=== PATIENT | male | born 1965 | race Caucasian/White ===

== ENCOUNTER 2024-05-26 19:23 | Inpatient (IN) | payer MEDICAID ==
[~2024-05-26] VITALS: Ht 170.2 cm; Wt 96.5 kg
[2024-05-26 19:33] VITALS: PULSE 92; RESP 4; O2SAT 99
[2024-05-26] MEDS ORDERED: iohexol 350MG/ML 100ml bottle IV ONE (19:33)
[2024-05-26] MEDS ORDERED: levetiracetam inj 2,000 MG in normal saline 100ml IV soln 100 ML IV ONE (19:35)
[2024-05-26] MEDS ORDERED: levetiracetam-NACL1000mg/100ml 100 ML IV ONE ×2 (19:40)
[2024-05-26 19:57] LABS: APTT 44 SECONDS (22-32); INR 1.1 INR; PROTHROMBIN TIME 11.7 SECONDS (9.0-12.0)
[2024-05-26 19:58] LABS: BASOPHILS % (AUTO) 0.2 % (0-1); EOSINOPHILS % (AUTO) 0.3 % (0-6); LYMPHOCYTES # (AUTO) 1.2 X10'3 (1.1-4.8); LYMPHOCYTES % (AUTO) 6.3 % (21-51); MEAN PLATELET VOLUME 10.7 FL (7.4-10.4); MONOCYTES # (AUTO) 2.7 X10'3 (0-0.9); MONOCYTES % (AUTO) 14.5 % (2-12); NEUTROPHILS # (AUTO) 14.4 X10'3 (1.8-7.7); NEUTROPHILS % (AUTO) 78.7 % (42-75); PLATELET COUNT 313 X10'3 (140-440); WHITE BLOOD COUNT 18.3 X10'3 (4.5-11.0)
[2024-05-26] MEDS: levetiracetam-NACL1000mg/100ml 100 ML IV ONE ×2 (20:00→20:07)
[2024-05-26 20:01] LABS: ALBUMIN 3.4 G/DL (3.4-5.0); ANION GAP 27 (8-16); BLOOD UREA NITROGEN 65 MG/DL (7-18); BUN/CREATININE RATIO 23.2 (10.0-20.0); CHLORIDE 90 MMOL/L (99-107); POTASSIUM 5.1 MMOL/L (3.5-5.1); SODIUM 124 MMOL/L (135-145); eCRCL 28 ML/MIN; eGFR 23 ML/MIN
[2024-05-26] MEDS: LORazepam 2 mg/ml vial IV ONE (20:04)
[2024-05-26 20:12] LABS: GLUCOSE 597 MG/DL (70-104); TOTAL CARBON DIOXIDE 7.2 MMOL/L (24-32)
[2024-05-26 20:15] LABS: TOTAL CELLS COUNTED 100
[2024-05-26 20:17] LABS: ANISOCYTOSIS 1+; LARGE PLATELETS FEW; PLATELET ESTIMATE NORMAL
[2024-05-26 20:23] LABS: HEMATOCRIT 43.8 % (42.0-52.0); MEAN CORPUSCULAR HEMOGLOBIN 29.3 PG (27.0-31.0); MEAN CORPUSCULAR HGB CONC 34.3 g/dL (33.0-36.5); MEAN CORPUSCULAR VOLUME 85.6 FL (78-98); RED BLOOD COUNT 5.12 X10'6 (4.70-6.10); RED CELL DISTRIBUTION WIDTH 15.9 % (11.5-14.5)
[2024-05-26] MEDS ORDERED: potassium Cl 20 mEq SR tablet PO PRN ×2 (20:30)
[2024-05-26] MEDS ORDERED: sodium bicarbonate (8.4%) inj. 50 MEQ in dextrose 5% water 500ml 250 ML IV PRN (20:30)
[2024-05-26] MEDS ORDERED: potassium Cl 40MEQ/1/2NS 520ml 520 ML IV PRN (20:30)
[2024-05-26] MEDS ORDERED: sodium bicarbonate (8.4%) inj. 100 MEQ in dextrose 5% water 500ml 500 ML IV PRN (20:30)
[2024-05-26] MEDS ORDERED: Neutra Phos packet PO PRN (20:30)
[2024-05-26] MEDS ORDERED: potassium CL 20mEq in D5-1/2NS 1,000 ML IV PRN (20:30)
[2024-05-26] MEDS ORDERED: sodium phosphate inj. 15 MMOL in dextrose 5%-water 250 ML IV PRN (20:30)
[2024-05-26] MEDS ORDERED: sodium phosphate inj. 30 MMOL in dextrose 5%-water 250 ML IV PRN (20:30)
[2024-05-26] MEDS ORDERED: dextrose 50%-water 50ml dispensing syringe IV PRN (20:30)
[2024-05-26] MEDS: naloxone 0.4 mg/ml inj IV ONE (20:38)
[2024-05-26] MEDS: normal saline 1000ml 1,000 ML IV SCH ×2 (21:00→21:25)
[2024-05-26 21:14] LABS: BILIRUBIN,URINE SMALL (Neg); CLARITY,URINE CLEAR (Clear); COLOR,URINE YELLOW (Yellow); GLUCOSE, URINE >=1000 mg/dl (Neg); KETONES,URINE 40 mg/dl (Neg); LEUKOCYTE ESTERASE ,URINE NEGATIVE (Neg); NITRITES, URINE NEGATIVE (Neg); OCCULT BLOOD,URINE LARGE (Neg); PH,URINE 5.5 (4.8-8.0); PROTEIN,URINE 30 mg/dl (Neg); UROBILINOGEN,URINE 0.2 E.U/dL (0.2-1.0)
[2024-05-26] MEDS: insulin regular, human 10 units/0.1 ml syringe IV PRN (21:17)
[2024-05-26 21:18] LABS: UA COLLECTION TYPE FOLEY CATH
[2024-05-26] MEDS: Insulin Reg/NS 100units/100mL 100 ML IV SCH (21:18)
[2024-05-26 21:21] LABS: BACTERIA,URINE 3+ /HPF (Neg); FINE GRANULAR CAST 0-3 /LPF (NEGATIVE); SQUAMOUS EPITHELIAL CELL,UR FEW /LPF (FEW); WBC,URINE 0-4 /HPF (0-4)
[2024-05-26] MEDS: normal saline 1000ml 1,000 ML IV ONE (21:25)
[2024-05-26] MEDS: sodium bicarbonate (8.4%) 1 mEq/ml syringe IV ONE (21:29)
[2024-05-26 21:33] LABS: URINE AMPHETAMINE SCREEN NEGATIVE (Neg); URINE BARBITUATE SCREEN NEGATIVE (Neg); URINE BENZODIAZEPINES SCREEN NEGATIVE (Neg); URINE CANNABINOID SCREEN NEGATIVE (Neg); URINE COCAINE SCREEN NEGATIVE (Neg); URINE METHADONE SCREEN NEGATIVE (Neg); URINE OPIATE SCREEN POSITIVE (Neg); URINE PHENCYCLIDINE SCREEN NEGATIVE (Neg)
[2024-05-26] MEDS: NORepinephrine 8mg/ 250ml NS 250 ML IV SCH (21:44)
[2024-05-26 21:46] LABS: ETHANOL < 10 MG/DL (<10)
[2024-05-26 21:48] LABS: PHOSPHORUS 12.3 MG/DL (2.3-4.5)
[2024-05-26] MEDS ORDERED: fentaNYL/PF 50MCG/1 ML 2ML syringe IV PRN (22:25)
[2024-05-26 22:48] LABS: ALANINE AMINOTRANSFERASE 40 U/L (12-78); ALBUMIN 2.6 G/DL (3.4-5.0); ALBUMIN/GLOBULIN RATIO 0.9 (1.1-1.5); ALKALINE PHOSPHATASE 130 IU/L (46-116); ANION GAP 21 (8-16); ASPARTATE AMINO TRANSFERASE 88 U/L (10-37); BILIRUBIN,TOTAL 0.6 MG/DL (0.1-1.0); BLOOD UREA NITROGEN 62 MG/DL (7-18); BUN/CREATININE RATIO 24.7 (10.0-20.0); CALCIUM 6.7 MG/DL (8.5-10.1); CHLORIDE 97 MMOL/L (99-107); CREATININE 2.51 MG/DL (0.60-1.10); POTASSIUM 4.9 MMOL/L (3.5-5.1); SODIUM 129 MMOL/L (135-145); TOTAL PROTEIN 5.4 G/DL (6.4-8.2); eCRCL 29 ML/MIN; eGFR 26 ML/MIN
[2024-05-26] MEDS: etomidate 2mg/ml inj. IV ONE (22:56)
[2024-05-26] MEDS: rocuronium 10mg/ml inj IV ONE (22:57)
[2024-05-26] MEDS: midazolam 100mg in NS 100ml 100 ML IV PRN (23:13)
[2024-05-26 23:39] LABS: TOTAL CARBON DIOXIDE 11.1 MMOL/L (24-32)
[2024-05-26 23:41] LABS: GLUCOSE 470 MG/DL (70-104)
[2024-05-26 23:49] VITALS: BP 116/69; PULSE 56; RESP 16
[2024-05-27] VITALS (65 sets, daily range): BP systolic 82–152; BP diastolic 37–72; PULSE 56–124; RESP 16–43; TEMP 93.2; O2SAT 96–100
[2024-05-27 00:42] LABS: ABG BASE EXCESS -27.2 mmol/L (-2.0-3.0); ABG HCO3 7.7 mmol/L (21.0-28.0); ABG OXYGEN SATURATION 95.8 % (94.0-98.0); ABG PCO2 (T) 41.8 mmHg (35.0-48.0); ABG PH (T) 6.855 (7.350-7.450); ABG PO2 (T) 87.4 mmHg (83.0-108.0); ALLEN'S TEST Yes; FCOHb 0.2 % (0.5-1.5); FHHb 4.2 % (0.0-5.0); FMetHb 0.1 % (0.0-1.5); FO2Hb 95.5 % (94.0-98.0); MODE VENT - PRVC; PATIENT TEMPERATURE 33.3; PEEP 5 cm H2O; RESPIRATORY RATE 16 b/min; TIDAL VOLUME 400 mL; TOTAL HEMOGLOBIN 16.8 G/dl (13.5-17.5)
[2024-05-27 00:58] LABS: ALBUMIN 3.3 G/DL (3.4-5.0); ANION GAP 22 (8-16); BLOOD UREA NITROGEN 62 MG/DL (7-18); BUN/CREATININE RATIO 24.6 (10.0-20.0); CALCIUM 7.2 MG/DL (8.5-10.1); CHLORIDE 97 MMOL/L (99-107); CREATININE 2.52 MG/DL (0.60-1.10); POTASSIUM 4.7 MMOL/L (3.5-5.1); SODIUM 130 MMOL/L (135-145); eCRCL 29 ML/MIN; eGFR 26 ML/MIN
[2024-05-27 00:59] LABS: PHOSPHORUS 9.8 MG/DL (2.3-4.5)
[2024-05-27 01:03] LABS: GLUCOSE 414 MG/DL (70-104); TOTAL CARBON DIOXIDE 11.4 MMOL/L (24-32)
[2024-05-27] MEDS: sodium bicarbonate (8.4%) 1 mEq/ml syringe IV ONE (01:12)
[2024-05-27] MEDS ORDERED: morphine 2 MG/ML inj. syringe IV PRN (01:20)
[2024-05-27] MEDS ORDERED: Insulin Reg/NS 100units/100mL 100 ML IV SCH (01:20)
[2024-05-27] MEDS ORDERED: insulin regular, human 10 units/0.1 ml syringe IV PRN (01:20)
[2024-05-27] MEDS ORDERED: dextrose 50%-water 50ml dispensing syringe IV PRN (01:20)
[2024-05-27] MEDS ORDERED: normal saline 1000ml 1,000 ML IV SCH (01:20)
[2024-05-27] MEDS ORDERED: sodium phosphate inj. 30 MMOL in dextrose 5%-water 250 ML IV PRN (01:20)
[2024-05-27] MEDS ORDERED: potassium Cl 40MEQ/1/2NS 520ml 520 ML IV PRN (01:20)
[2024-05-27] MEDS ORDERED: sodium bicarbonate (8.4%) inj. 50 MEQ in dextrose 5% water 500ml 250 ML IV PRN (01:20)
[2024-05-27] MEDS ORDERED: magnesium hydroxide 30ml (MOM) UD suspension PO PRN (01:20)
[2024-05-27] MEDS ORDERED: potassium Cl 20 mEq SR tablet PO PRN ×2 (01:20)
[2024-05-27] MEDS: LidoCAINE 2% Topical Jelly 11mL syringe (UROJET) TOP ONE (01:20)
[2024-05-27] MEDS ORDERED: Neutra Phos packet PO PRN (01:20)
[2024-05-27] MEDS ORDERED: acetaminophen 325mg tablet PO PRN ×2 (01:20)
[2024-05-27] MEDS ORDERED: ondansetron/PF 4mg/2ml inj IV PRN (01:20)
[2024-05-27 01:34] LABS: ALBUMIN 2.3 G/DL (3.4-5.0); ANION GAP 16 (8-16); BLOOD UREA NITROGEN 63 MG/DL (7-18); BUN/CREATININE RATIO 27.3 (10.0-20.0); CHLORIDE 105 MMOL/L (99-107); CREATININE 2.31 MG/DL (0.60-1.10); GLUCOSE 330 MG/DL (70-104); POTASSIUM 3.8 MMOL/L (3.5-5.1); SODIUM 145 MMOL/L (135-145); TOTAL CARBON DIOXIDE 24.4 MMOL/L (24-32); eCRCL 31 ML/MIN; eGFR 29 ML/MIN
[2024-05-27] MEDS: normal saline 1000ml 1,000 ML IV SCH (01:50)
[2024-05-27] MEDS: sodium bicarbonate (8.4%) inj. 100 MEQ in dextrose 5% water 500ml 500 ML IV PRN (02:15)
[2024-05-27 02:29] LABS: CALCIUM 5.7 MG/DL (8.5-10.1)
[2024-05-27] MEDS ORDERED: calcium gluconate inj. 2 GM in normal saline 100ml IV soln 100 ML IV STA (02:29)
[2024-05-27] MEDS: CALCIUM GLUC 1gm/50ml NACL,iso 50 ML IV ONE ×2 (02:43→04:27)
[2024-05-27 02:50] LABS: ABG BASE EXCESS -20.2 mmol/L (-2.0-3.0); ABG HCO3 10.2 mmol/L (21.0-28.0); ABG PCO2 (T) 35.7 mmHg (35.0-48.0); ABG PH (T) 7.058 (7.350-7.450); ABG PO2 (T) 71.4 mmHg (83.0-108.0); ALLEN'S TEST POSITIVE; FCOHb 0.4 % (0.5-1.5); FMetHb 0.1 % (0.0-1.5); FO2Hb 94.5 % (94.0-98.0); MODE VENT - PRVC; PATIENT TEMPERATURE 34.4; PEEP 5 cm H2O; RESPIRATORY RATE 18 b/min; TIDAL VOLUME 500 mL
[2024-05-27 05:00] LABS: ABG BASE EXCESS -15.7 mmol/L (-2.0-3.0); ABG HCO3 10.4 mmol/L (21.0-28.0); ABG OXYGEN SATURATION 93.2 % (94.0-98.0); ABG PCO2 (T) 25.3 mmHg (35.0-48.0); ABG PH (T) 7.226 (7.350-7.450); ABG PO2 (T) 60.4 mmHg (83.0-108.0); ALLEN'S TEST POSITIVE; FCOHb 1.3 % (0.5-1.5); FHHb 6.7 % (0.0-5.0); FMetHb 0.3 % (0.0-1.5); FO2Hb 91.7 % (94.0-98.0); MODE VENT - PRVC; PATIENT TEMPERATURE 35.9; PEEP 5 cm H2O; RESPIRATORY RATE 18 b/min; TIDAL VOLUME 500 mL; TOTAL HEMOGLOBIN 15.2 G/dl (13.5-17.5)
[2024-05-27] MEDS: potassium CL 20mEq in D5-1/2NS 1,000 ML IV PRN (05:54)
[2024-05-27 05:57] LABS: ALBUMIN 2.2 G/DL (3.4-5.0); ANION GAP 17 (8-16); BLOOD UREA NITROGEN 64 MG/DL (7-18); BUN/CREATININE RATIO 25.4 (10.0-20.0); CALCIUM 6.4 MG/DL (8.5-10.1); CHLORIDE 104 MMOL/L (99-107); CREATININE 2.52 MG/DL (0.60-1.10); GLUCOSE 249 MG/DL (70-104); PHOSPHORUS 4.3 MG/DL (2.3-4.5); SODIUM 136 MMOL/L (135-145); eCRCL 29 ML/MIN; eGFR 26 ML/MIN
[2024-05-27 06:04] LABS: POTASSIUM 2.8 MMOL/L (3.5-5.1)
[2024-05-27] MEDS ORDERED: POTASSIUM CHLORIDE 20 MEQ/15 ML oral solution PO PRN (07:21)
[2024-05-27] MEDS: POTASSIUM CHLORIDE 20 MEQ/15 ML oral solution OGT PRN ×2 (07:53→12:03)
[2024-05-27] MEDS: K and/or MAG REPLACEMENT MC SCH (08:00)
[2024-05-27] MEDS ORDERED: K and/or MAG REPLACEMENT MC SCH (08:00)
[2024-05-27 08:26] LABS: HEMOGLOBIN A1C 10.4 % (4.5-6.2)
[2024-05-27] MEDS ORDERED: rocuronium 10mg/ml inj IV ONE (09:00)
[2024-05-27 10:24] LABS: ALANINE AMINOTRANSFERASE 42 U/L (12-78); ALBUMIN 2.3 G/DL (3.4-5.0); ALKALINE PHOSPHATASE 103 IU/L (46-116); ANION GAP 15 (8-16); ASPARTATE AMINO TRANSFERASE 82 U/L (10-37); BILIRUBIN,TOTAL 0.5 MG/DL (0.1-1.0); BLOOD UREA NITROGEN 65 MG/DL (7-18); BUN/CREATININE RATIO 24.5 (10.0-20.0); CALCIUM 6.5 MG/DL (8.5-10.1); CHLORIDE 107 MMOL/L (99-107); CREATININE 2.65 MG/DL (0.60-1.10); GLUCOSE 162 MG/DL (70-104); MAGNESIUM 2.2 MG/DL (1.5-2.4); PHOSPHORUS 2.1 MG/DL (2.3-4.5); POTASSIUM 3.3 MMOL/L (3.5-5.1); SODIUM 138 MMOL/L (135-145); TOTAL CARBON DIOXIDE 15.7 MMOL/L (24-32); TOTAL PROTEIN 4.6 G/DL (6.4-8.2); eCRCL 27 ML/MIN; eGFR 25 ML/MIN
[2024-05-27] MEDS: PERFLUTREN PROTEIN-A MICROSPHR (Optison) 0.22 MG/ML 3ML VIAL IV ONE (11:35)
[2024-05-27] MEDS: acetaminophen 325mg tablet OGT PRN ×2 (12:03→20:54)
[2024-05-27] MEDS: FENTANYL-0.9 % NACL/PF 100 ML IV SCH (12:58)
[2024-05-27] MEDS: COMMUNICATION ORDER 1 EA MISC MC ONE ×4 (13:00→20:25)
[2024-05-27] MEDS: DEXTROSE 10 % AND 0.45 % NACL 1,000 ML IV SCH (13:05)
[2024-05-27] MEDS: sodium phosphate inj. 15 MMOL in dextrose 5%-water 250 ML IV PRN (13:12)
[2024-05-27] MEDS: pantoprazole 40 MG vial IV SCH (13:17)
[2024-05-27 13:18] LABS: PRO BRAIN NATRIURETIC PEPTIDE 15087 PG/ML (0-125)
[2024-05-27] MEDS: CefTRIAXone/D5W-Rocephin 1gm 50 ML IV SCH (13:37)
[2024-05-27 13:42] LABS: ACETONE NEGATIVE (NEGATIVE)
[2024-05-27] MEDS: AZITHROMYCIN 500 MG in NS 250ml IV.SOLN IV SCH (14:04)
[2024-05-27 14:18] LABS: BILIRUBIN,URINE MODERATE (Neg); CLARITY,URINE SLIGHTLY CLOUDY (Clear); COLOR,URINE YELLOW (Yellow); GLUCOSE, URINE 250 mg/dl (Neg); KETONES,URINE NEGATIVE (Neg); LEUKOCYTE ESTERASE ,URINE NEGATIVE (Neg); NITRITES, URINE NEGATIVE (Neg); OCCULT BLOOD,URINE LARGE (Neg); PROTEIN,URINE 30 mg/dl (Neg); UROBILINOGEN,URINE 0.2 E.U/dL (0.2-1.0)
[2024-05-27 14:21] LABS: UA COLLECTION TYPE FOLEY CATH
[2024-05-27 14:30] LABS: RBC,URINE 20-50 /HPF (0-2)
[2024-05-27 14:31] LABS: BACTERIA,URINE FEW /HPF (Neg); FINE GRANULAR CAST 0-3 /LPF (NEGATIVE); MUCUS STRANDS NONE SEEN /LPF (Neg); RENAL CELLS, URINE FEW /HPF; SQUAMOUS EPITHELIAL CELL,UR NONE SEEN /LPF (FEW)
[2024-05-27] MEDS ORDERED: LEVO50CA4 PO (14:45)
[2024-05-27] MEDS ORDERED: POTA8CAP20 PO (14:45)
[2024-05-27] MEDS ORDERED: XAL0.005OS EACHEYE (14:45)
[2024-05-27] MEDS ORDERED: FURO-150 PO (14:45)
[2024-05-27] MEDS ORDERED: EMPA25TA PO (14:45)
[2024-05-27] MEDS ORDERED: FLO0.4C PO (14:45)
[2024-05-27] MEDS ORDERED: CYCL-394 PO (14:45)
[2024-05-27] MEDS ORDERED: MORP30TA PO (14:45)
[2024-05-27] MEDS ORDERED: TIRZ7.5P SQ (14:45)
[2024-05-27] MEDS ORDERED: LOP12.5T PO (14:45)
[2024-05-27] MEDS ORDERED: ATOR40TA PO (14:45)
[2024-05-27] MEDS ORDERED: LYR25C PO (14:45)
[2024-05-27] MEDS ORDERED: INSU100I31 SQ (14:49)
[2024-05-27] MEDS: HEPARIN DRIP-CARDIAC**PHARMACIST-TO-DOSE IV ONE (15:50)
[2024-05-27 15:59] LABS: ACETONE NEGATIVE (NEGATIVE); ALBUMIN 1.9 G/DL (3.4-5.0); ANION GAP 16 (8-16); BLOOD UREA NITROGEN 65 MG/DL (7-18); BUN/CREATININE RATIO 21.7 (10.0-20.0); CALCIUM 6.1 MG/DL (8.5-10.1); CHLORIDE 108 MMOL/L (99-107); GLUCOSE 176 MG/DL (70-104); MAGNESIUM 1.9 MG/DL (1.5-2.4); SODIUM 139 MMOL/L (135-145); TOTAL CARBON DIOXIDE 15.1 MMOL/L (24-32); eCRCL 24 ML/MIN; eGFR 21 ML/MIN
[2024-05-27] MEDS ORDERED: heparin, porcine 5000 units/ml vial SQ SCH (16:00)
[2024-05-27 16:01] LABS: POTASSIUM 2.9 MMOL/L (3.5-5.1)
[2024-05-27] MEDS: aspirin 81mg tab.chew PO ONE (16:36)
[2024-05-27] MEDS: sodium chloride inj. 154 MEQ in Dextrose 10%-water IV solution 961.5 ML IV SCH (16:37)
[2024-05-27] MEDS: furosemide 10 MG/1 ML 10ml inj IV ONE (16:37)
[2024-05-27] MEDS: heparin 10,000 units/1 ML INJ IV ONE (16:40)
[2024-05-27 16:45] LABS: BASOPHILS % (AUTO) 0.1 % (0-1); EOSINOPHILS % (AUTO) 0.1 % (0-6); HEMATOCRIT 40.4 % (42.0-52.0); HEMOGLOBIN 13.7 g/dl (14.0-17.9); LYMPHOCYTES # (AUTO) 0.2 X10'3 (1.1-4.8); LYMPHOCYTES % (AUTO) 3.9 % (21-51); MEAN CORPUSCULAR HEMOGLOBIN 28.9 PG (27.0-31.0); MEAN CORPUSCULAR HGB CONC 33.8 g/dL (33.0-36.5); MEAN CORPUSCULAR VOLUME 85.4 FL (78-98); MEAN PLATELET VOLUME 9.5 FL (7.4-10.4); MONOCYTES % (AUTO) 21.1 % (2-12); NEUTROPHILS # (AUTO) 3.4 X10'3 (1.8-7.7); NEUTROPHILS % (AUTO) 74.8 % (42-75); PLATELET COUNT 118 X10'3 (140-440); RED BLOOD COUNT 4.73 X10'6 (4.70-6.10); RED CELL DISTRIBUTION WIDTH 16.3 % (11.5-14.5); WHITE BLOOD COUNT 4.6 X10'3 (4.5-11.0)
[2024-05-27 16:48] LABS: INR 1.2 INR; PROTHROMBIN TIME 12.5 SECONDS (9.0-12.0)
[2024-05-27] MEDS: MESSAGE TO NURSING IV ONE (16:48)
[2024-05-27 16:49] LABS: CHOL/HDL RATIO 3.4 (0.00-4.99); CHOLESTEROL 67 MG/DL (0-200); HDL CHOLESTEROL 20 MG/DL (35-60); LDL CHOLESTEROL 19 MG/DL (50-100); TRIGLYCERIDES 188 MG/DL (20-135)
[2024-05-27] MEDS: heparin 25,000 UNIT/250ml bag 250 ML IV PRN (17:00)
[2024-05-27] MEDS: heparin 10,000 units/1 ML INJ IV PRN (17:01)
[2024-05-27 17:22] LABS: TOTAL CELLS COUNTED 100
[2024-05-27 17:23] LABS: ANISOCYTOSIS 1+; PLATELET ESTIMATE DECREASED
[2024-05-27 17:26] LABS: TOXIC VACUOLATION FEW
[2024-05-27] MEDS: potassium Cl 40MEQ/270ML bag 270 ML IV PRN (20:34)
[2024-05-27] MEDS: Neutra Phos packet OGT PRN (22:43)
[2024-05-27] MEDS: magnesium sulf-water 2g/50mL 50 ML IV PRN (23:27)
[2024-05-28] VITALS (32 sets, daily range): BP systolic 119–150; BP diastolic 42–81; PULSE 98–124; RESP 16–32; O2SAT 96–99
[2024-05-28 00:03] LABS: ALBUMIN 1.7 G/DL (3.4-5.0); ANION GAP 15 (8-16); BLOOD UREA NITROGEN 63 MG/DL (7-18); BUN/CREATININE RATIO 19.9 (10.0-20.0); CHLORIDE 112 MMOL/L (99-107); CREATININE 3.17 MG/DL (0.60-1.10); GLUCOSE 140 MG/DL (70-104); POTASSIUM 4.5 MMOL/L (3.5-5.1); SODIUM 141 MMOL/L (135-145); eCRCL 23 ML/MIN; eGFR 20 ML/MIN
[2024-05-28 00:22] LABS: CALCIUM 5.8 MG/DL (8.5-10.1); TOTAL CARBON DIOXIDE 14.5 MMOL/L (24-32)
[2024-05-28] MEDS: magnesium sulf-water 4G/100mL 100 ML IV PRN (00:46)
[2024-05-28 01:02] LABS: APTT 63 SECONDS (22-32)
[2024-05-28] MEDS: MESSAGE TO NURSING IV ONE ×3 (02:49→15:48)
[2024-05-28 03:19] LABS: ABG BASE EXCESS -13.7 mmol/L (-2.0-3.0); ABG HCO3 10.8 mmol/L (21.0-28.0); ABG OXYGEN SATURATION 95.9 % (94.0-98.0); ABG PCO2 (T) 23.6 mmHg (35.0-48.0); ABG PH (T) 7.283 (7.350-7.450); ABG PO2 (T) 81.1 mmHg (83.0-108.0); ALLEN'S TEST POSITIVE; FCOHb 1.1 % (0.5-1.5); FMetHb 0.3 % (0.0-1.5); FO2Hb 94.6 % (94.0-98.0); MODE VENT - PRVC; PATIENT TEMPERATURE 37.6; PEEP 5 cm H2O; RESPIRATORY RATE 18 b/min; TIDAL VOLUME 500 mL
[2024-05-28 03:29] LABS: ALBUMIN 1.7 G/DL (3.4-5.0); ANION GAP 14 (8-16); BLOOD UREA NITROGEN 60 MG/DL (7-18); BUN/CREATININE RATIO 19.5 (10.0-20.0); CHLORIDE 114 MMOL/L (99-107); CREATININE 3.07 MG/DL (0.60-1.10); GLUCOSE 175 MG/DL (70-104); MAGNESIUM 3.4 MG/DL (1.5-2.4); PHOSPHORUS 1.6 MG/DL (2.3-4.5); POTASSIUM 4.1 MMOL/L (3.5-5.1); SODIUM 142 MMOL/L (135-145); eCRCL 24 ML/MIN; eGFR 21 ML/MIN
[2024-05-28 03:31] LABS: BASOPHILS % (AUTO) 0.1 % (0-1); EOSINOPHILS % (AUTO) 0.1 % (0-6); HEMATOCRIT 40.2 % (42.0-52.0); HEMOGLOBIN 13.8 g/dl (14.0-17.9); LYMPHOCYTES # (AUTO) 0.8 X10'3 (1.1-4.8); LYMPHOCYTES % (AUTO) 7.3 % (21-51); MEAN CORPUSCULAR HEMOGLOBIN 29.6 PG (27.0-31.0); MEAN CORPUSCULAR HGB CONC 34.3 g/dL (33.0-36.5); MEAN CORPUSCULAR VOLUME 86.2 FL (78-98); MONOCYTES # (AUTO) 1.7 X10'3 (0-0.9); MONOCYTES % (AUTO) 15.6 % (2-12); NEUTROPHILS # (AUTO) 8.4 X10'3 (1.8-7.7); NEUTROPHILS % (AUTO) 76.9 % (42-75); PLATELET COUNT 134 X10'3 (140-440); RED BLOOD COUNT 4.67 X10'6 (4.70-6.10); RED CELL DISTRIBUTION WIDTH 17.1 % (11.5-14.5); WHITE BLOOD COUNT 10.9 X10'3 (4.5-11.0)
[2024-05-28 04:21] LABS: CALCIUM 5.9 MG/DL (8.5-10.1); TOTAL CARBON DIOXIDE 13.9 MMOL/L (24-32)
[2024-05-28 09:23] LABS: APTT 49 SECONDS (22-32)
[2024-05-28 09:30] LABS: ALBUMIN 1.7 G/DL (3.4-5.0); ANION GAP 14 (8-16); BLOOD UREA NITROGEN 60 MG/DL (7-18); BUN/CREATININE RATIO 18.7 (10.0-20.0); CHLORIDE 113 MMOL/L (99-107); CREATININE 3.21 MG/DL (0.60-1.10); GLUCOSE 346 MG/DL (70-104); MAGNESIUM 2.8 MG/DL (1.5-2.4); PHOSPHORUS 2.7 MG/DL (2.3-4.5); POTASSIUM 3.8 MMOL/L (3.5-5.1); SODIUM 141 MMOL/L (135-145); eCRCL 23 ML/MIN; eGFR 20 ML/MIN
[2024-05-28 09:33] LABS: CALCIUM 5.8 MG/DL (8.5-10.1); TOTAL CARBON DIOXIDE 13.7 MMOL/L (24-32)
[2024-05-28 10:30] LABS: C DIFF ANTIGEN NEGATIVE (NEGATIVE); C DIFF SPECIMEN=DIARRHEA? ACCEPTABLE; C DIFFICILE TOXINS A&B NEGATIVE (Neg)
[2024-05-28] MEDS: COMMUNICATION ORDER 1 EA MISC MC ONE (10:30)
[2024-05-28] MEDS: aspirin 81mg tab.chew PO SCH (10:32)
[2024-05-28] MEDS: sodium bicarbonate 1meq/ml inj 150 ML in dextrose 5%-water 1,000 ML IV SCH (12:27)
[2024-05-28 14:34] LABS: APTT 44 SECONDS (22-32)
[2024-05-28 14:35] LABS: ALBUMIN 1.6 G/DL (3.4-5.0); ANION GAP 12 (8-16); BLOOD UREA NITROGEN 55 MG/DL (7-18); BUN/CREATININE RATIO 17.3 (10.0-20.0); CHLORIDE 119 MMOL/L (99-107); CREATININE 3.18 MG/DL (0.60-1.10); GLUCOSE 209 MG/DL (70-104); MAGNESIUM 3.2 MG/DL (1.5-2.4); PHOSPHORUS 2.3 MG/DL (2.3-4.5); SODIUM 146 MMOL/L (135-145); TOTAL CARBON DIOXIDE 15.1 MMOL/L (24-32); eCRCL 23 ML/MIN; eGFR 20 ML/MIN
[2024-05-28 14:36] LABS: CALCIUM 5.9 MG/DL (8.5-10.1)
[2024-05-28 20:42] LABS: APTT 58 SECONDS (22-32)
[2024-05-28 20:43] LABS: ALBUMIN 1.5 G/DL (3.4-5.0); ANION GAP 10 (8-16); BLOOD UREA NITROGEN 51 MG/DL (7-18); BUN/CREATININE RATIO 17.5 (10.0-20.0); CHLORIDE 121 MMOL/L (99-107); CREATININE 2.91 MG/DL (0.60-1.10); GLUCOSE 118 MG/DL (70-104); MAGNESIUM 2.6 MG/DL (1.5-2.4); POTASSIUM 3.4 MMOL/L (3.5-5.1); SODIUM 149 MMOL/L (135-145); TOTAL CARBON DIOXIDE 17.6 MMOL/L (24-32); eCRCL 25 ML/MIN; eGFR 22 ML/MIN
[2024-05-29] VITALS (35 sets, daily range): BP systolic 85–164; BP diastolic 52–71; PULSE 103–124; RESP 12–33; O2SAT 93–98
[2024-05-29] MEDS: MESSAGE TO NURSING IV ONE ×4 (00:11→23:59)
[2024-05-29 02:12] LABS: BASOPHILS % (AUTO) 0.2 % (0-1); EOSINOPHILS # (AUTO) 0.1 X10'3 (0-0.9); EOSINOPHILS % (AUTO) 0.8 % (0-6); HEMATOCRIT 36.6 % (42.0-52.0); HEMOGLOBIN 12.5 g/dl (14.0-17.9); LYMPHOCYTES # (AUTO) 0.6 X10'3 (1.1-4.8); MEAN CORPUSCULAR HEMOGLOBIN 29.3 PG (27.0-31.0); MEAN CORPUSCULAR HGB CONC 34.1 g/dL (33.0-36.5); MEAN CORPUSCULAR VOLUME 85.7 FL (78-98); MEAN PLATELET VOLUME 9.7 FL (7.4-10.4); MONOCYTES # (AUTO) 0.9 X10'3 (0-0.9); MONOCYTES % (AUTO) 9.9 % (2-12); NEUTROPHILS # (AUTO) 7.7 X10'3 (1.8-7.7); NEUTROPHILS % (AUTO) 83.1 % (42-75); PLATELET COUNT 94 X10'3 (140-440); RED BLOOD COUNT 4.26 X10'6 (4.70-6.10); RED CELL DISTRIBUTION WIDTH 17.7 % (11.5-14.5); WHITE BLOOD COUNT 9.2 X10'3 (4.5-11.0)
[2024-05-29 02:35] LABS: ACETONE NEGATIVE (NEGATIVE)
[2024-05-29 02:40] LABS: ALANINE AMINOTRANSFERASE 27 U/L (12-78); ALBUMIN 1.4 G/DL (3.4-5.0); ALBUMIN/GLOBULIN RATIO 0.6 (1.1-1.5); ALKALINE PHOSPHATASE 90 IU/L (46-116); ANION GAP 11 (8-16); ASPARTATE AMINO TRANSFERASE 24 U/L (10-37); BILIRUBIN,TOTAL 0.2 MG/DL (0.1-1.0); BLOOD UREA NITROGEN 47 MG/DL (7-18); BUN/CREATININE RATIO 16.7 (10.0-20.0); CHLORIDE 122 MMOL/L (99-107); CREATININE 2.82 MG/DL (0.60-1.10); GLUCOSE 238 MG/DL (70-104); MAGNESIUM 2.5 MG/DL (1.5-2.4); POTASSIUM 3.5 MMOL/L (3.5-5.1); SODIUM 150 MMOL/L (135-145); TOTAL CARBON DIOXIDE 17.3 MMOL/L (24-32); TOTAL PROTEIN 3.9 G/DL (6.4-8.2); eCRCL 26 ML/MIN; eGFR 23 ML/MIN
[2024-05-29 02:43] LABS: CALCIUM 5.9 MG/DL (8.5-10.1)
[2024-05-29 03:02] LABS: LARGE PLATELETS MODERATE; PLATELET ESTIMATE DECREASED
[2024-05-29 03:03] LABS: GIANT PLATELET FEW
[2024-05-29 03:15] LABS: ABG BASE EXCESS -8.4 mmol/L (-2.0-3.0); ABG HCO3 15.3 mmol/L (21.0-28.0); ABG OXYGEN SATURATION 95.6 % (94.0-98.0); ABG PCO2 (T) 27.5 mmHg (35.0-48.0); ABG PH (T) 7.365 (7.350-7.450); ABG PO2 (T) 78.7 mmHg (83.0-108.0); ALLEN'S TEST Modified; FCOHb 1.1 % (0.5-1.5); FHHb 4.3 % (0.0-5.0); FMetHb 0.3 % (0.0-1.5); FO2Hb 94.3 % (94.0-98.0); MODE VENT - PRVC; PATIENT TEMPERATURE 37.6; PEEP 5 cm H2O; RESPIRATORY RATE 18 b/min; TIDAL VOLUME 500 mL; TOTAL HEMOGLOBIN 12.7 G/dl (13.5-17.5)
[2024-05-29] MEDS: aspirin 81mg tab.chew OGT SCH (09:22)
[2024-05-29 10:10] LABS: ALBUMIN 1.3 G/DL (3.4-5.0); ANION GAP 10 (8-16); BLOOD UREA NITROGEN 44 MG/DL (7-18); BUN/CREATININE RATIO 15.8 (10.0-20.0); CHLORIDE 121 MMOL/L (99-107); CREATININE 2.79 MG/DL (0.60-1.10); GLUCOSE 273 MG/DL (70-104); MAGNESIUM 3.9 MG/DL (1.5-2.4); PHOSPHORUS 2.6 MG/DL (2.3-4.5); POTASSIUM 3.1 MMOL/L (3.5-5.1); SODIUM 151 MMOL/L (135-145); TOTAL CARBON DIOXIDE 20.1 MMOL/L (24-32); eCRCL 26 ML/MIN; eGFR 23 ML/MIN
[2024-05-29 10:17] LABS: CALCIUM 5.8 MG/DL (8.5-10.1)
[2024-05-29] MEDS: desmopressin 0.1mg/ml nasal spray 5ml btl NS ONE ×2 (10:50→21:08)
[2024-05-29] MEDS ORDERED: glucagon, human recombinant 1mg kit SUBCUT PRN (11:10)
[2024-05-29] MEDS ORDERED: dextrose 50%-water 50ml dispensing syringe IV PRN (11:10)
[2024-05-29] MEDS ORDERED: DEXTROSE 15 GM of carb/4 tabs (each vial/BOTTLE has 4 tablets) PO PRN ×2 (11:10)
[2024-05-29] MEDS: VANCOMYCIN 1.75GM/WATER FOR INJ (PEG) 350 ML IVPB IV ONE (11:50)
[2024-05-29] MEDS: INSULIN LISPRO 100 UNIT/ML INSULN.PEN MULTI-DOSE SQ SCH (12:00)
[2024-05-29] MEDS ORDERED: DEXTROSE 15 GM of carb/4 tabs (each vial/BOTTLE has 4 tablets) OGT PRN ×2 (12:52)
[2024-05-29] MEDS: insulin glargine (Lantus) pen - multi-dose SQ SCH (16:15)
[2024-05-30] VITALS (36 sets, daily range): BP systolic 80–143; BP diastolic 35–75; PULSE 75–114; RESP 14–52; O2SAT 93–99
[2024-05-30] MEDS: dexmedetomidin/NS 400mcg/100ml 100 ML IV SCH (00:31)
[2024-05-30 02:57] LABS: BASOPHILS % (AUTO) 0.2 % (0-1); EOSINOPHILS # (AUTO) 0.1 X10'3 (0-0.9); EOSINOPHILS % (AUTO) 1.5 % (0-6); HEMATOCRIT 34.7 % (42.0-52.0); HEMOGLOBIN 11.6 g/dl (14.0-17.9); LYMPHOCYTES # (AUTO) 0.5 X10'3 (1.1-4.8); LYMPHOCYTES % (AUTO) 6.8 % (21-51); MEAN CORPUSCULAR HEMOGLOBIN 28.7 PG (27.0-31.0); MEAN CORPUSCULAR HGB CONC 33.5 g/dL (33.0-36.5); MEAN CORPUSCULAR VOLUME 85.6 FL (78-98); MEAN PLATELET VOLUME 9.7 FL (7.4-10.4); MONOCYTES # (AUTO) 0.6 X10'3 (0-0.9); NEUTROPHILS # (AUTO) 6.7 X10'3 (1.8-7.7); NEUTROPHILS % (AUTO) 84.5 % (42-75); PLATELET COUNT 97 X10'3 (140-440); RED BLOOD COUNT 4.05 X10'6 (4.70-6.10); RED CELL DISTRIBUTION WIDTH 16.8 % (11.5-14.5); WHITE BLOOD COUNT 7.9 X10'3 (4.5-11.0)
[2024-05-30 03:13] LABS: ALBUMIN 1.5 G/DL (3.4-5.0); ANION GAP 5 (8-16); BLOOD UREA NITROGEN 32 MG/DL (7-18); BUN/CREATININE RATIO 14.4 (10.0-20.0); CALCIUM 6.2 MG/DL (8.5-10.1); CHLORIDE 117 MMOL/L (99-107); CREATININE 2.22 MG/DL (0.60-1.10); GLUCOSE 286 MG/DL (70-104); MAGNESIUM 2.1 MG/DL (1.5-2.4); PHOSPHORUS 3.5 MG/DL (2.3-4.5); PREALBUMIN 6.6 MG/DL (19-36); SODIUM 151 MMOL/L (135-145); TOTAL CARBON DIOXIDE 28.9 MMOL/L (24-32); eCRCL 33 ML/MIN; eGFR 30 ML/MIN
[2024-05-30] MEDS: MESSAGE TO NURSING IV ONE ×2 (03:21→13:36)
[2024-05-30 03:34] LABS: POTASSIUM 2.8 MMOL/L (3.5-5.1)
[2024-05-30 04:03] LABS: ABG OXYGEN SATURATION 93.9 % (94.0-98.0); ABG PCO2 (T) 29.8 mmHg (35.0-48.0); ABG PH (T) 7.492 (7.350-7.450); ALLEN'S TEST Modified; FCOHb 1.2 % (0.5-1.5); FMetHb 0.3 % (0.0-1.5); FO2Hb 92.5 % (94.0-98.0); MODE VENT - CPAP; PATIENT TEMPERATURE 38.5; PEEP 5 cm H2O; TOTAL HEMOGLOBIN 11.7 G/dl (13.5-17.5)
[2024-05-30 07:49] LABS: ALANINE AMINOTRANSFERASE 20 U/L (12-78); ALBUMIN/GLOBULIN RATIO 0.5 (1.1-1.5); ALKALINE PHOSPHATASE 94 IU/L (46-116); ASPARTATE AMINO TRANSFERASE 21 U/L (10-37); BILIRUBIN,TOTAL 0.4 MG/DL (0.1-1.0); TOTAL PROTEIN 4.6 G/DL (6.4-8.2)
[2024-05-30] MEDS: dextrose 5%-water 1,000 ML IV SCH (10:27)
[2024-05-30] MEDS: VANCOMYCIN/WATER FOR INJ (PEG) 750MG/150 ML IVPB IV SCH (11:30)
[2024-05-30] MEDS: insulin glargine (Lantus) pen - multi-dose SQ ONE (12:31)
[2024-05-30] MEDS: insulin regular, human U-100 10ml vial - multi-dose SQ SCH (13:23)
[2024-05-30] MEDS: POTASSIUM CHLORIDE 20 MEQ/15 ML oral solution OGT SCH (13:49)
[2024-05-30] MEDS: NORepinephrine 8mg/ 250ml NS 250 ML IV SCH (17:24)
[2024-05-30 18:47] LABS: ALBUMIN 1.6 G/DL (3.4-5.0); ANION GAP 8 (8-16); BLOOD UREA NITROGEN 31 MG/DL (7-18); BUN/CREATININE RATIO 13.6 (10.0-20.0); CALCIUM 6.4 MG/DL (8.5-10.1); CHLORIDE 118 MMOL/L (99-107); CREATININE 2.28 MG/DL (0.60-1.10); GLUCOSE 160 MG/DL (70-104); POTASSIUM 3.3 MMOL/L (3.5-5.1); SODIUM 153 MMOL/L (135-145); TOTAL CARBON DIOXIDE 27.4 MMOL/L (24-32); eCRCL 32 ML/MIN; eGFR 29 ML/MIN
[2024-05-30] MEDS: insulin glargine (Lantus) pen - multi-dose SQ SCH (20:00)
[2024-05-30] MEDS: heparin, porcine 5000 units/ml vial SQ SCH (21:01)
[2024-05-30] MEDS: desmopressin 4 MCG/1 ML amp SQ ONE (22:20)
[2024-05-31] VITALS (37 sets, daily range): BP systolic 82–162; BP diastolic 45–76; PULSE 66–100; RESP 13–47; O2SAT 92–100
[2024-05-31 00:41] LABS: ALBUMIN 1.5 G/DL (3.4-5.0); ANION GAP 7 (8-16); BLOOD UREA NITROGEN 29 MG/DL (7-18); BUN/CREATININE RATIO 15.1 (10.0-20.0); CALCIUM 6.2 MG/DL (8.5-10.1); CHLORIDE 118 MMOL/L (99-107); CREATININE 1.92 MG/DL (0.60-1.10); GLUCOSE 223 MG/DL (70-104); POTASSIUM 3.6 MMOL/L (3.5-5.1); SODIUM 151 MMOL/L (135-145); TOTAL CARBON DIOXIDE 25.8 MMOL/L (24-32); eCRCL 38 ML/MIN; eGFR 36 ML/MIN
[2024-05-31] MEDS: insulin regular, human U-100 10ml vial - multi-dose SQ SCH (02:31)
[2024-05-31 02:52] LABS: BASOPHILS % (AUTO) 0.3 % (0-1); EOSINOPHILS # (AUTO) 0.1 X10'3 (0-0.9); EOSINOPHILS % (AUTO) 1.7 % (0-6); HEMATOCRIT 34.1 % (42.0-52.0); HEMOGLOBIN 11.7 g/dl (14.0-17.9); LYMPHOCYTES # (AUTO) 0.5 X10'3 (1.1-4.8); LYMPHOCYTES % (AUTO) 8.3 % (21-51); MEAN CORPUSCULAR HEMOGLOBIN 29.3 PG (27.0-31.0); MEAN CORPUSCULAR HGB CONC 34.3 g/dL (33.0-36.5); MEAN CORPUSCULAR VOLUME 85.5 FL (78-98); MEAN PLATELET VOLUME 9.5 FL (7.4-10.4); MONOCYTES # (AUTO) 0.8 X10'3 (0-0.9); MONOCYTES % (AUTO) 12.8 % (2-12); NEUTROPHILS # (AUTO) 4.5 X10'3 (1.8-7.7); NEUTROPHILS % (AUTO) 76.9 % (42-75); PLATELET COUNT 120 X10'3 (140-440); RED BLOOD COUNT 3.99 X10'6 (4.70-6.10); RED CELL DISTRIBUTION WIDTH 17.1 % (11.5-14.5); WHITE BLOOD COUNT 5.9 X10'3 (4.5-11.0)
[2024-05-31 03:04] LABS: ALANINE AMINOTRANSFERASE 24 U/L (12-78); ALBUMIN 1.5 G/DL (3.4-5.0); ALBUMIN/GLOBULIN RATIO 0.4 (1.1-1.5); ALKALINE PHOSPHATASE 102 IU/L (46-116); ANION GAP 9 (8-16); ASPARTATE AMINO TRANSFERASE 16 U/L (10-37); BILIRUBIN,TOTAL 0.3 MG/DL (0.1-1.0); BLOOD UREA NITROGEN 30 MG/DL (7-18); BUN/CREATININE RATIO 16.6 (10.0-20.0); CALCIUM 6.4 MG/DL (8.5-10.1); CHLORIDE 115 MMOL/L (99-107); CREATININE 1.81 MG/DL (0.60-1.10); GLUCOSE 278 MG/DL (70-104); PHOSPHORUS 1.8 MG/DL (2.3-4.5); POTASSIUM 3.3 MMOL/L (3.5-5.1); SODIUM 151 MMOL/L (135-145); TOTAL CARBON DIOXIDE 26.6 MMOL/L (24-32); eCRCL 40 ML/MIN; eGFR 38 ML/MIN
[2024-05-31 03:08] LABS: ABG HCO3 22.6 mmol/L (21.0-28.0); ABG OXYGEN SATURATION 97.1 % (94.0-98.0); ABG PO2 (T) 91.2 mmHg (83.0-108.0); ALLEN'S TEST Modified; FCOHb 0.8 % (0.5-1.5); FHHb 2.9 % (0.0-5.0); FMetHb 0.3 % (0.0-1.5); MODE VENT - PRVC; PATIENT TEMPERATURE 38.1; PEEP 5 cm H2O; RESPIRATORY RATE 18 b/min; TIDAL VOLUME 500 mL; TOTAL HEMOGLOBIN 12.3 G/dl (13.5-17.5)
[2024-05-31] MEDS: furosemide 20 MG/2 ML vial IV ONE (10:02)
[2024-05-31 13:11] LABS: AMYLASE 35 U/L (25-115); LIPASE 89 U/L (16-77)
[2024-05-31] MEDS: risperiDONE 0.5mg tablet PO SCH (13:30)
[2024-05-31] MEDS: risperiDONE 2mg tablet PO SCH (13:30)
[2024-05-31 17:40] LABS: ALBUMIN 1.5 G/DL (3.4-5.0); ANION GAP 10 (8-16); BLOOD UREA NITROGEN 27 MG/DL (7-18); BUN/CREATININE RATIO 16.8 (10.0-20.0); CALCIUM 6.7 MG/DL (8.5-10.1); CHLORIDE 115 MMOL/L (99-107); CREATININE 1.61 MG/DL (0.60-1.10); GLUCOSE 107 MG/DL (70-104); POTASSIUM 3.4 MMOL/L (3.5-5.1); SODIUM 151 MMOL/L (135-145); TOTAL CARBON DIOXIDE 25.6 MMOL/L (24-32); eCRCL 45 ML/MIN; eGFR 44 ML/MIN
[2024-05-31] MEDS: nafcillin inj 2 GM in normal saline 100ml IV soln 100 ML IV SCH (19:28)
[2024-05-31] MEDS: levoFLOXACIN-Levaquin 750MG/D5 150 ML IV SCH (20:46)
[2024-06-01] VITALS (41 sets, daily range): BP systolic 93–155; BP diastolic 42–80; PULSE 64–138; RESP 15–38; O2SAT 92–98
[2024-06-01 01:50] LABS: BASOPHILS % (AUTO) 0.5 % (0-1); EOSINOPHILS # (AUTO) 0.2 X10'3 (0-0.9); EOSINOPHILS % (AUTO) 3.7 % (0-6); HEMATOCRIT 32.7 % (42.0-52.0); HEMOGLOBIN 10.9 g/dl (14.0-17.9); LYMPHOCYTES # (AUTO) 0.7 X10'3 (1.1-4.8); LYMPHOCYTES % (AUTO) 14.6 % (21-51); MEAN CORPUSCULAR HEMOGLOBIN 28.8 PG (27.0-31.0); MEAN CORPUSCULAR HGB CONC 33.4 g/dL (33.0-36.5); MEAN CORPUSCULAR VOLUME 86.3 FL (78-98); MEAN PLATELET VOLUME 9.4 FL (7.4-10.4); MONOCYTES # (AUTO) 0.7 X10'3 (0-0.9); MONOCYTES % (AUTO) 16.4 % (2-12); NEUTROPHILS # (AUTO) 2.9 X10'3 (1.8-7.7); NEUTROPHILS % (AUTO) 64.8 % (42-75); PLATELET COUNT 140 X10'3 (140-440); RED BLOOD COUNT 3.79 X10'6 (4.70-6.10); RED CELL DISTRIBUTION WIDTH 17.3 % (11.5-14.5); WHITE BLOOD COUNT 4.5 X10'3 (4.5-11.0)
[2024-06-01 02:02] LABS: ALANINE AMINOTRANSFERASE 23 U/L (12-78); ALBUMIN 1.3 G/DL (3.4-5.0); ALBUMIN/GLOBULIN RATIO 0.4 (1.1-1.5); ALKALINE PHOSPHATASE 85 IU/L (46-116); ANION GAP 8 (8-16); ASPARTATE AMINO TRANSFERASE 30 U/L (10-37); BILIRUBIN,TOTAL 0.3 MG/DL (0.1-1.0); BLOOD UREA NITROGEN 27 MG/DL (7-18); BUN/CREATININE RATIO 19.9 (10.0-20.0); CALCIUM 6.2 MG/DL (8.5-10.1); CHLORIDE 116 MMOL/L (99-107); CREATININE 1.36 MG/DL (0.60-1.10); GLUCOSE 260 MG/DL (70-104); MAGNESIUM 1.6 MG/DL (1.5-2.4); PHOSPHORUS 2.4 MG/DL (2.3-4.5); POTASSIUM 4.2 MMOL/L (3.5-5.1); SODIUM 148 MMOL/L (135-145); TOTAL CARBON DIOXIDE 24.2 MMOL/L (24-32); eCRCL 53 ML/MIN; eGFR 53 ML/MIN
[2024-06-01 02:03] LABS: TOTAL CELLS COUNTED 100
[2024-06-01 03:01] LABS: ABG BASE EXCESS -2.7 mmol/L (-2.0-3.0); ABG HCO3 20.3 mmol/L (21.0-28.0); ABG OXYGEN SATURATION 95.4 % (94.0-98.0); ABG PCO2 (T) 30.3 mmHg (35.0-48.0); ABG PH (T) 7.445 (7.350-7.450); ABG PO2 (T) 74.6 mmHg (83.0-108.0); ALLEN'S TEST Modified; FCOHb 0.4 % (0.5-1.5); FHHb 4.6 % (0.0-5.0); FMetHb 0.3 % (0.0-1.5); FO2Hb 94.7 % (94.0-98.0); MODE VENT - PRVC; PATIENT TEMPERATURE 37.7; PEEP 5 cm H2O; RESPIRATORY RATE 18 b/min; TIDAL VOLUME 500 mL; TOTAL HEMOGLOBIN 11.5 G/dl (13.5-17.5)
[2024-06-01] MEDS ORDERED: rocuronium 10mg/ml inj IV ONE (08:00)
[2024-06-01] MEDS: propofol 1000mg/100ml bottle 100 ML IV SCH ×2 (11:19→23:15)
[2024-06-01] MEDS: VANCOMYCIN LEVEL IV ONE (11:30)
[2024-06-01] MEDS: HYDROmorphone 1 mg/ml syringe ONE (14:58)
[2024-06-01] MEDS: HYDROmorphone 1 mg/ml syringe IV ONE (15:00)
[2024-06-01] MEDS: midazolam 100mg in NS 100ml 100 ML IV SCH (15:42)
[2024-06-01 17:43] LABS: ABG BASE EXCESS -3.9 mmol/L (-2.0-3.0); ABG HCO3 19.6 mmol/L (21.0-28.0); ABG OXYGEN SATURATION 96.4 % (94.0-98.0); ABG PH (T) 7.409 (7.350-7.450); ABG PO2 (T) 85.4 mmHg (83.0-108.0); ALLEN'S TEST POSITIVE; FCOHb 0.5 % (0.5-1.5); FHHb 3.6 % (0.0-5.0); FMetHb 0.3 % (0.0-1.5); FO2Hb 95.6 % (94.0-98.0); MODE VENT - AC; PEEP 5 cm H2O; RESPIRATORY RATE 18 b/min; TIDAL VOLUME 500 mL; TOTAL HEMOGLOBIN 11.6 G/dl (13.5-17.5)
[2024-06-01] MEDS ORDERED: NORMAL SALINE IV SCH (18:15)
[2024-06-01] MEDS ORDERED: FENTANYL IV SCH (18:15)
[2024-06-01] MEDS: fentaNYL 50mcg/ml PF inj. 2,500 MCG in normal saline 250ml IV soln 200 ML IV SCH (19:38)
[2024-06-02] VITALS (39 sets, daily range): BP systolic 93–162; BP diastolic 44–78; PULSE 102–123; RESP 18–34; O2SAT 92–98
[2024-06-02 02:47] LABS: BASOPHILS % (AUTO) 0.4 % (0-1); EOSINOPHILS # (AUTO) 0.3 X10'3 (0-0.9); EOSINOPHILS % (AUTO) 4.9 % (0-6); HEMATOCRIT 32.1 % (42.0-52.0); HEMOGLOBIN 10.5 g/dl (14.0-17.9); LYMPHOCYTES # (AUTO) 0.8 X10'3 (1.1-4.8); LYMPHOCYTES % (AUTO) 14.4 % (21-51); MEAN CORPUSCULAR HEMOGLOBIN 28.7 PG (27.0-31.0); MEAN CORPUSCULAR HGB CONC 32.7 g/dL (33.0-36.5); MEAN CORPUSCULAR VOLUME 87.5 FL (78-98); MEAN PLATELET VOLUME 9.3 FL (7.4-10.4); MONOCYTES # (AUTO) 0.5 X10'3 (0-0.9); MONOCYTES % (AUTO) 8.2 % (2-12); NEUTROPHILS # (AUTO) 4.2 X10'3 (1.8-7.7); NEUTROPHILS % (AUTO) 72.1 % (42-75); PLATELET COUNT 197 X10'3 (140-440); RED BLOOD COUNT 3.66 X10'6 (4.70-6.10); WHITE BLOOD COUNT 5.8 X10'3 (4.5-11.0)
[2024-06-02 03:10] LABS: ALANINE AMINOTRANSFERASE 27 U/L (12-78); ALBUMIN 1.3 G/DL (3.4-5.0); ALBUMIN/GLOBULIN RATIO 0.3 (1.1-1.5); ALKALINE PHOSPHATASE 111 IU/L (46-116); ANION GAP 10 (8-16); ASPARTATE AMINO TRANSFERASE 47 U/L (10-37); BILIRUBIN,TOTAL 0.4 MG/DL (0.1-1.0); BLOOD UREA NITROGEN 23 MG/DL (7-18); BUN/CREATININE RATIO 16.8 (10.0-20.0); CALCIUM 6.3 MG/DL (8.5-10.1); CHLORIDE 115 MMOL/L (99-107); CREATININE 1.37 MG/DL (0.60-1.10); GLUCOSE 182 MG/DL (70-104); MAGNESIUM 1.5 MG/DL (1.5-2.4); PHOSPHORUS 2.9 MG/DL (2.3-4.5); SODIUM 147 MMOL/L (135-145); TOTAL CARBON DIOXIDE 22.4 MMOL/L (24-32); TOTAL PROTEIN 5.3 G/DL (6.4-8.2); TRIGLYCERIDES 318 MG/DL (20-135); eCRCL 53 ML/MIN; eGFR 53 ML/MIN
[2024-06-02 03:55] LABS: ABG BASE EXCESS -3.4 mmol/L (-2.0-3.0); ABG OXYGEN SATURATION 94.9 % (94.0-98.0); ABG PCO2 (T) 31.5 mmHg (35.0-48.0); ABG PH (T) 7.423 (7.350-7.450); ABG PO2 (T) 76.4 mmHg (83.0-108.0); ALLEN'S TEST Modified; FCOHb 0.3 % (0.5-1.5); FHHb 5.1 % (0.0-5.0); FMetHb 0.3 % (0.0-1.5); FO2Hb 94.3 % (94.0-98.0); MODE CMV PRVC IT 1.0; PATIENT TEMPERATURE 37.8; PEEP 5 cm H2O; RESPIRATORY RATE 18 b/min; TIDAL VOLUME 500 mL; TOTAL HEMOGLOBIN 11.3 G/dl (13.5-17.5)
[2024-06-02] MEDS ORDERED: VANCOMYCIN/WATER FOR INJ (PEG) 750MG/150 ML IVPB IV SCH (08:44)
[2024-06-02] MEDS: ipratropium/albuterol 3ml nebule NEB SCH (11:53)
[2024-06-02] MEDS: furosemide 20 MG/2 ML vial IV SCH (13:28)
[2024-06-02] MEDS: metolazone 2.5mg tablet OGT SCH (19:41)
[2024-06-02] MEDS: dextrose 50%-water 50ml dispensing syringe IV PRN (20:26)
[2024-06-03] VITALS (44 sets, daily range): BP systolic 91–165; BP diastolic 44–88; PULSE 83–126; RESP 15–41; O2SAT 92–99
[2024-06-03 01:11] LABS: BASOPHILS % (AUTO) 0.3 % (0-1); EOSINOPHILS # (AUTO) 0.3 X10'3 (0-0.9); EOSINOPHILS % (AUTO) 3.5 % (0-6); HEMOGLOBIN 10.4 g/dl (14.0-17.9); LYMPHOCYTES # (AUTO) 0.6 X10'3 (1.1-4.8); LYMPHOCYTES % (AUTO) 7.5 % (21-51); MEAN CORPUSCULAR HGB CONC 33.5 g/dL (33.0-36.5); MEAN CORPUSCULAR VOLUME 86.5 FL (78-98); MEAN PLATELET VOLUME 9.3 FL (7.4-10.4); MONOCYTES # (AUTO) 0.4 X10'3 (0-0.9); MONOCYTES % (AUTO) 4.5 % (2-12); NEUTROPHILS % (AUTO) 84.2 % (42-75); PLATELET COUNT 232 X10'3 (140-440); RED BLOOD COUNT 3.59 X10'6 (4.70-6.10); RED CELL DISTRIBUTION WIDTH 17.9 % (11.5-14.5); WHITE BLOOD COUNT 8.4 X10'3 (4.5-11.0)
[2024-06-03 01:30] LABS: ALANINE AMINOTRANSFERASE 30 U/L (12-78); ALBUMIN 1.3 G/DL (3.4-5.0); ALBUMIN/GLOBULIN RATIO 0.3 (1.1-1.5); ALKALINE PHOSPHATASE 145 IU/L (46-116); ANION GAP 11 (8-16); ASPARTATE AMINO TRANSFERASE 44 U/L (10-37); BILIRUBIN,TOTAL 0.4 MG/DL (0.1-1.0); BLOOD UREA NITROGEN 20 MG/DL (7-18); BUN/CREATININE RATIO 14.8 (10.0-20.0); CALCIUM 6.8 MG/DL (8.5-10.1); CHLORIDE 109 MMOL/L (99-107); CREATININE 1.35 MG/DL (0.60-1.10); GLUCOSE 141 MG/DL (70-104); MAGNESIUM 1.3 MG/DL (1.5-2.4); POTASSIUM 4.3 MMOL/L (3.5-5.1); SODIUM 142 MMOL/L (135-145); TOTAL CARBON DIOXIDE 22.5 MMOL/L (24-32); TOTAL PROTEIN 5.5 G/DL (6.4-8.2); eCRCL 54 ML/MIN; eGFR 54 ML/MIN
[2024-06-03] MEDS: morphine 4 MG/ML inj SYRINge IV PRN (03:35)
[2024-06-03 05:31] LABS: ABG BASE EXCESS -1.3 mmol/L (-2.0-3.0); ABG HCO3 21.5 mmol/L (21.0-28.0); ABG OXYGEN SATURATION 92.8 % (94.0-98.0); ABG PCO2 (T) 33.1 mmHg (35.0-48.0); ABG PH (T) 7.438 (7.350-7.450); ALLEN'S TEST Modified; FCOHb 0.1 % (0.5-1.5); FHHb 7.2 % (0.0-5.0); FMetHb 0.3 % (0.0-1.5); FO2Hb 92.4 % (94.0-98.0); MODE CMV PRVC IT 0.85; PATIENT TEMPERATURE 39.2; PEEP 5 cm H2O; RESPIRATORY RATE 18 b/min; TIDAL VOLUME 500 mL; TOTAL HEMOGLOBIN 11.8 G/dl (13.5-17.5)
[2024-06-03] MEDS: risperiDONE 0.5mg tablet OGT SCH (07:38)
[2024-06-03] MEDS: risperiDONE 2mg tablet OGT SCH (07:39)
[2024-06-03] MEDS: magnesium sulf-water 2g/50mL 50 ML IV PRN (07:41)
[2024-06-03] MEDS: insulin glargine (Lantus) pen - multi-dose SQ SCH (08:57)
[2024-06-03] MEDS: metolazone 2.5mg tablet PO SCH (09:17)
[2024-06-03] MEDS: metolazone 2.5mg tablet OGT SCH (10:00)
[2024-06-03] MEDS: dexamethasone sod phosphate 10mg/ml inj IV SCH (11:44)
[2024-06-03] MEDS: BARICITINIB 2 MG TABLET PO SCH (13:53)
[2024-06-03] MEDS: ketamine 10mg/ml 20ml inj vial IV ONE (22:46)
[2024-06-03] MEDS: ketamine 10mg/ml 20ml inj 100 MG in normal saline 100ml IV soln 90 ML IV SCH (22:48)
[2024-06-03] MEDS: COMMUNICATION ORDER 1 EA MISC MC ONE ×2 (22:48)
[2024-06-03] MEDS: propofol 1000mg/100ml bottle 100 ML IV SCH (22:53)
[2024-06-03] MEDS ORDERED: VANCOMYCIN LEVEL IV ONE (23:30)
[2024-06-04] VITALS (40 sets, daily range): BP systolic 95–169; BP diastolic 42–80; PULSE 70–119; RESP 14–33; O2SAT 92–99
[2024-06-04 01:49] LABS: BASOPHILS % (AUTO) 0.1 % (0-1); EOSINOPHILS # (AUTO) 0.1 X10'3 (0-0.9); EOSINOPHILS % (AUTO) 0.6 % (0-6); HEMATOCRIT 30.8 % (42.0-52.0); HEMOGLOBIN 10.2 g/dl (14.0-17.9); LYMPHOCYTES # (AUTO) 0.5 X10'3 (1.1-4.8); LYMPHOCYTES % (AUTO) 6.5 % (21-51); MEAN CORPUSCULAR HEMOGLOBIN 28.6 PG (27.0-31.0); MEAN CORPUSCULAR HGB CONC 33.1 g/dL (33.0-36.5); MEAN CORPUSCULAR VOLUME 86.5 FL (78-98); MEAN PLATELET VOLUME 9.3 FL (7.4-10.4); MONOCYTES # (AUTO) 0.2 X10'3 (0-0.9); MONOCYTES % (AUTO) 2.7 % (2-12); NEUTROPHILS # (AUTO) 7.5 X10'3 (1.8-7.7); NEUTROPHILS % (AUTO) 90.1 % (42-75); PLATELET COUNT 266 X10'3 (140-440); RED BLOOD COUNT 3.56 X10'6 (4.70-6.10); RED CELL DISTRIBUTION WIDTH 17.8 % (11.5-14.5); WHITE BLOOD COUNT 8.4 X10'3 (4.5-11.0)
[2024-06-04 02:04] LABS: ALANINE AMINOTRANSFERASE 30 U/L (12-78); ALBUMIN 1.2 G/DL (3.4-5.0); ALBUMIN/GLOBULIN RATIO 0.3 (1.1-1.5); ALKALINE PHOSPHATASE 128 IU/L (46-116); ANION GAP 8 (8-16); ASPARTATE AMINO TRANSFERASE 40 U/L (10-37); BILIRUBIN,TOTAL 0.4 MG/DL (0.1-1.0); BLOOD UREA NITROGEN 28 MG/DL (7-18); BUN/CREATININE RATIO 22.8 (10.0-20.0); CALCIUM 6.9 MG/DL (8.5-10.1); CHLORIDE 106 MMOL/L (99-107); CREATININE 1.23 MG/DL (0.60-1.10); GLUCOSE 187 MG/DL (70-104); MAGNESIUM 1.9 MG/DL (1.5-2.4); PHOSPHORUS 3.5 MG/DL (2.3-4.5); POTASSIUM 4.2 MMOL/L (3.5-5.1); SODIUM 139 MMOL/L (135-145); TOTAL CARBON DIOXIDE 24.9 MMOL/L (24-32); TOTAL PROTEIN 5.4 G/DL (6.4-8.2); TRIGLYCERIDES 197 MG/DL (20-135); eCRCL 59 ML/MIN; eGFR 60 ML/MIN
[2024-06-04 03:25] LABS: ABG BASE EXCESS 0.3 mmol/L (-2.0-3.0); ABG HCO3 22.8 mmol/L (21.0-28.0); ABG OXYGEN SATURATION 94.8 % (94.0-98.0); ABG PCO2 (T) 33.1 mmHg (35.0-48.0); ABG PH (T) 7.464 (7.350-7.450); ABG PO2 (T) 76.2 mmHg (83.0-108.0); ALLEN'S TEST Modified; FHHb 5.2 % (0.0-5.0); FMetHb 0.3 % (0.0-1.5); FO2Hb 94.5 % (94.0-98.0); MODE CMV PRVC IT .85; PEEP 5 cm H2O; RESPIRATORY RATE 18 b/min; TIDAL VOLUME 500 mL; TOTAL HEMOGLOBIN 11.5 G/dl (13.5-17.5)
[2024-06-04] MEDS ORDERED: CISatracurium **Bolus** 2 mg/ml inj IV PRN (08:50)
[2024-06-04] MEDS ORDERED: CISatracurium besylate inj. 100 MG in normal saline 100ml IV soln 90 ML IV PRN (09:40)
[2024-06-04 11:02] LABS: ABG BASE EXCESS 1.5 mmol/L (-2.0-3.0); ABG HCO3 24.4 mmol/L (21.0-28.0); ABG OXYGEN SATURATION 96.3 % (94.0-98.0); ABG PCO2 (T) 34.6 mmHg (35.0-48.0); ABG PH (T) 7.472 (7.350-7.450); ABG PO2 (T) 82.6 mmHg (83.0-108.0); ALLEN'S TEST POSITIVE; FCOHb 0.5 % (0.5-1.5); FHHb 3.7 % (0.0-5.0); FMetHb 0.3 % (0.0-1.5); FO2Hb 95.5 % (94.0-98.0); MODE VENT - AC; PATIENT TEMPERATURE 38.2; PEEP 12 cm H2O; RESPIRATORY RATE 18 b/min; TOTAL HEMOGLOBIN 11.5 G/dl (13.5-17.5)
[2024-06-04] MEDS: COMMUNICATION ORDER 1 EA MISC MC ONE (11:15)
[2024-06-04] MEDS ORDERED: phenoBARBITAL inj 130 MG in normal saline 100ml IV soln 99 ML IV SCH (12:05)
[2024-06-04] MEDS: NORMAL SALINE IV SCH (15:46)
[2024-06-04] MEDS: PHENOBARBITAL IV SCH (15:46)
[2024-06-05] VITALS (41 sets, daily range): BP systolic 101–198; BP diastolic 48–76; PULSE 73–115; RESP 13–27; O2SAT 91–98
[2024-06-05 01:53] LABS: BASOPHILS % (AUTO) 0.2 % (0-1); EOSINOPHILS # (AUTO) 0.1 X10'3 (0-0.9); EOSINOPHILS % (AUTO) 0.8 % (0-6); HEMATOCRIT 30.9 % (42.0-52.0); HEMOGLOBIN 10.3 g/dl (14.0-17.9); LYMPHOCYTES # (AUTO) 0.9 X10'3 (1.1-4.8); LYMPHOCYTES % (AUTO) 10.5 % (21-51); MEAN CORPUSCULAR HEMOGLOBIN 28.8 PG (27.0-31.0); MEAN CORPUSCULAR HGB CONC 33.2 g/dL (33.0-36.5); MEAN CORPUSCULAR VOLUME 86.7 FL (78-98); MEAN PLATELET VOLUME 9.4 FL (7.4-10.4); MONOCYTES # (AUTO) 0.3 X10'3 (0-0.9); MONOCYTES % (AUTO) 3.1 % (2-12); NEUTROPHILS # (AUTO) 7.2 X10'3 (1.8-7.7); NEUTROPHILS % (AUTO) 85.4 % (42-75); PLATELET COUNT 311 X10'3 (140-440); RED BLOOD COUNT 3.56 X10'6 (4.70-6.10); RED CELL DISTRIBUTION WIDTH 17.1 % (11.5-14.5); WHITE BLOOD COUNT 8.5 X10'3 (4.5-11.0)
[2024-06-05 02:07] LABS: ALANINE AMINOTRANSFERASE 30 U/L (12-78); ALBUMIN 1.3 G/DL (3.4-5.0); ALBUMIN/GLOBULIN RATIO 0.3 (1.1-1.5); ALKALINE PHOSPHATASE 115 IU/L (46-116); ANION GAP 9 (8-16); ASPARTATE AMINO TRANSFERASE 40 U/L (10-37); BILIRUBIN,TOTAL 0.4 MG/DL (0.1-1.0); BLOOD UREA NITROGEN 36 MG/DL (7-18); BUN/CREATININE RATIO 31.9 (10.0-20.0); CALCIUM 7.4 MG/DL (8.5-10.1); CHLORIDE 104 MMOL/L (99-107); CREATININE 1.13 MG/DL (0.60-1.10); GLUCOSE 93 MG/DL (70-104); MAGNESIUM 1.8 MG/DL (1.5-2.4); PHOSPHORUS 3.9 MG/DL (2.3-4.5); POTASSIUM 3.5 MMOL/L (3.5-5.1); SODIUM 141 MMOL/L (135-145); TOTAL CARBON DIOXIDE 27.7 MMOL/L (24-32); TOTAL PROTEIN 5.7 G/DL (6.4-8.2); eCRCL 64 ML/MIN; eGFR 66 ML/MIN
[2024-06-05 04:57] LABS: ABG BASE EXCESS -2.3 mmol/L (-2.0-3.0); ABG HCO3 20.1 mmol/L (21.0-28.0); ABG OXYGEN SATURATION 96.4 % (94.0-98.0); ABG PCO2 (T) 27.7 mmHg (35.0-48.0); ABG PH (T) 7.482 (7.350-7.450); ABG PO2 (T) 84.8 mmHg (83.0-108.0); FCOHb 0.5 % (0.5-1.5); FHHb 3.6 % (0.0-5.0); FMetHb 0.3 % (0.0-1.5); FO2Hb 95.6 % (94.0-98.0); MODE VENT- AC PRVC; PATIENT TEMPERATURE 38.3; PEEP 12 cm H2O; RESPIRATORY RATE 18 b/min; TIDAL VOLUME 500 mL; TOTAL HEMOGLOBIN 8.9 G/dl (13.5-17.5)
[2024-06-06] VITALS (42 sets, daily range): BP systolic 94–158; BP diastolic 39–91; PULSE 82–123; RESP 17–37; O2SAT 89–99
[2024-06-06] MEDS ORDERED: MIDAZolam 5mg/ml 2ml vial IV PRN (00:55)
[2024-06-06] MEDS: midazolam 1 mg/ML 2ml injection ONE (01:22)
[2024-06-06 03:21] LABS: BASOPHILS % (AUTO) 0.3 % (0-1); EOSINOPHILS # (AUTO) 0.1 X10'3 (0-0.9); EOSINOPHILS % (AUTO) 1.6 % (0-6); HEMATOCRIT 33.1 % (42.0-52.0); HEMOGLOBIN 11.1 g/dl (14.0-17.9); LYMPHOCYTES # (AUTO) 0.9 X10'3 (1.1-4.8); LYMPHOCYTES % (AUTO) 10.3 % (21-51); MEAN CORPUSCULAR HEMOGLOBIN 29.1 PG (27.0-31.0); MEAN CORPUSCULAR HGB CONC 33.6 g/dL (33.0-36.5); MEAN CORPUSCULAR VOLUME 86.7 FL (78-98); MEAN PLATELET VOLUME 9.4 FL (7.4-10.4); MONOCYTES # (AUTO) 0.4 X10'3 (0-0.9); MONOCYTES % (AUTO) 5.1 % (2-12); NEUTROPHILS % (AUTO) 82.7 % (42-75); PLATELET COUNT 428 X10'3 (140-440); RED BLOOD COUNT 3.82 X10'6 (4.70-6.10); RED CELL DISTRIBUTION WIDTH 16.9 % (11.5-14.5); WHITE BLOOD COUNT 8.5 X10'3 (4.5-11.0)
[2024-06-06 03:39] LABS: ALANINE AMINOTRANSFERASE 33 U/L (12-78); ALBUMIN 1.6 G/DL (3.4-5.0); ALBUMIN/GLOBULIN RATIO 0.3 (1.1-1.5); ALKALINE PHOSPHATASE 124 IU/L (46-116); ANION GAP 10 (8-16); ASPARTATE AMINO TRANSFERASE 34 U/L (10-37); BILIRUBIN,TOTAL 0.5 MG/DL (0.1-1.0); BLOOD UREA NITROGEN 45 MG/DL (7-18); BUN/CREATININE RATIO 34.1 (10.0-20.0); CALCIUM 8.8 MG/DL (8.5-10.1); CHLORIDE 100 MMOL/L (99-107); CREATININE 1.32 MG/DL (0.60-1.10); GLUCOSE 163 MG/DL (70-104); MAGNESIUM 2.1 MG/DL (1.5-2.4); PHOSPHORUS 3.4 MG/DL (2.3-4.5); POTASSIUM 3.4 MMOL/L (3.5-5.1); SODIUM 143 MMOL/L (135-145); TOTAL CARBON DIOXIDE 33.4 MMOL/L (24-32); TOTAL PROTEIN 6.8 G/DL (6.4-8.2); TRIGLYCERIDES 244 MG/DL (20-135); eCRCL 55 ML/MIN; eGFR 55 ML/MIN
[2024-06-06 04:57] LABS: ABG BASE EXCESS 6.3 mmol/L (-2.0-3.0); ABG HCO3 30.2 mmol/L (21.0-28.0); ABG OXYGEN SATURATION 90.5 % (94.0-98.0); ABG PCO2 (T) 43.7 mmHg (35.0-48.0); ABG PH (T) 7.463 (7.350-7.450); ABG PO2 (T) 59.6 mmHg (83.0-108.0); ALLEN'S TEST Modified; FCOHb 0.7 % (0.5-1.5); FHHb 9.4 % (0.0-5.0); FMetHb 0.3 % (0.0-1.5); FO2Hb 89.6 % (94.0-98.0); MODE vent- ac prvc12; PATIENT TEMPERATURE 38.5; PEEP 12 cm H2O; RESPIRATORY RATE 18 b/min; TIDAL VOLUME 500 mL; TOTAL HEMOGLOBIN 12.5 G/dl (13.5-17.5)
[2024-06-06] MEDS: COMMUNICATION ORDER 1 EA MISC MC ONE (06:50)
[2024-06-06] MEDS: dexamethasone sod phosphate 10mg/ml inj IV SCH (08:25)
[2024-06-06] MEDS: ketamine 10mg/ml 100 MG in NS 100ml IVPB IV SCH (13:44)
[2024-06-06] MEDS: ampicillin/sulbac 3gm/NS 100ml 100 ML IV SCH (14:21)
[2024-06-06 17:54] LABS: PREALBUMIN 12.2 MG/DL (19-36)
[2024-06-06] MEDS: enoxaparin 40mg/0.4ml syringe SUBCUT SCH (20:27)
[2024-06-07] VITALS (45 sets, daily range): BP systolic 86–165; BP diastolic 44–74; PULSE 82–116; RESP 16–25; O2SAT 90–99
[2024-06-07 02:45] LABS: BASOPHILS % (AUTO) 0.4 % (0-1); EOSINOPHILS # (AUTO) 0.1 X10'3 (0-0.9); EOSINOPHILS % (AUTO) 1.7 % (0-6); HEMATOCRIT 27.8 % (42.0-52.0); HEMOGLOBIN 9.4 g/dl (14.0-17.9); LYMPHOCYTES # (AUTO) 1.1 X10'3 (1.1-4.8); LYMPHOCYTES % (AUTO) 18.2 % (21-51); MEAN CORPUSCULAR HEMOGLOBIN 29.5 PG (27.0-31.0); MEAN CORPUSCULAR HGB CONC 33.9 g/dL (33.0-36.5); MEAN PLATELET VOLUME 9.1 FL (7.4-10.4); MONOCYTES # (AUTO) 0.3 X10'3 (0-0.9); MONOCYTES % (AUTO) 4.7 % (2-12); NEUTROPHILS # (AUTO) 4.7 X10'3 (1.8-7.7); PLATELET COUNT 371 X10'3 (140-440); RED CELL DISTRIBUTION WIDTH 16.7 % (11.5-14.5); WHITE BLOOD COUNT 6.3 X10'3 (4.5-11.0)
[2024-06-07 03:05] LABS: ALANINE AMINOTRANSFERASE 29 U/L (12-78); ALBUMIN 1.4 G/DL (3.4-5.0); ALBUMIN/GLOBULIN RATIO 0.3 (1.1-1.5); ALKALINE PHOSPHATASE 101 IU/L (46-116); ANION GAP 6 (8-16); ASPARTATE AMINO TRANSFERASE 27 U/L (10-37); BILIRUBIN,TOTAL 0.4 MG/DL (0.1-1.0); BLOOD UREA NITROGEN 45 MG/DL (7-18); BUN/CREATININE RATIO 36.9 (10.0-20.0); CALCIUM 7.6 MG/DL (8.5-10.1); CHLORIDE 107 MMOL/L (99-107); CREATININE 1.22 MG/DL (0.60-1.10); GLUCOSE 193 MG/DL (70-104); MAGNESIUM 3.1 MG/DL (1.5-2.4); PHOSPHORUS 3.9 MG/DL (2.3-4.5); POTASSIUM 3.8 MMOL/L (3.5-5.1); SODIUM 144 MMOL/L (135-145); TOTAL CARBON DIOXIDE 30.8 MMOL/L (24-32); eCRCL 59 ML/MIN; eGFR 60 ML/MIN
[2024-06-07 03:38] LABS: ABG BASE EXCESS 5.1 mmol/L (-2.0-3.0); ABG PCO2 (T) 40.5 mmHg (35.0-48.0); ABG PH (T) 7.474 (7.350-7.450); ABG PO2 (T) 64.5 mmHg (83.0-108.0); ALLEN'S TEST Modified; FCOHb 0.6 % (0.5-1.5); FHHb 5.9 % (0.0-5.0); FMetHb 0.3 % (0.0-1.5); FO2Hb 93.2 % (94.0-98.0); MODE prvc; PATIENT TEMPERATURE 37.2; PEEP 12 cm H2O; RESPIRATORY RATE 18 b/min; TIDAL VOLUME 500 mL; TOTAL HEMOGLOBIN 11.3 G/dl (13.5-17.5)
[2024-06-08] VITALS (42 sets, daily range): BP systolic 65–184; BP diastolic 35–98; PULSE 68–118; RESP 11–30; O2SAT 91–99
[2024-06-08] MEDS: propofol 1000mg/100ml bottle 100 ML IV SCH ×2 (01:34→02:30)
[2024-06-08 02:49] LABS: BASOPHILS % (AUTO) 0.5 % (0-1); EOSINOPHILS # (AUTO) 0.1 X10'3 (0-0.9); HEMATOCRIT 23.6 % (42.0-52.0); HEMOGLOBIN 7.8 g/dl (14.0-17.9); LYMPHOCYTES # (AUTO) 0.4 X10'3 (1.1-4.8); LYMPHOCYTES % (AUTO) 6.6 % (21-51); MEAN CORPUSCULAR HEMOGLOBIN 29.2 PG (27.0-31.0); MEAN CORPUSCULAR VOLUME 88.5 FL (78-98); MEAN PLATELET VOLUME 8.9 FL (7.4-10.4); MONOCYTES # (AUTO) 0.4 X10'3 (0-0.9); MONOCYTES % (AUTO) 6.3 % (2-12); NEUTROPHILS # (AUTO) 5.8 X10'3 (1.8-7.7); NEUTROPHILS % (AUTO) 85.6 % (42-75); PLATELET COUNT 380 X10'3 (140-440); RED BLOOD COUNT 2.67 X10'6 (4.70-6.10); RED CELL DISTRIBUTION WIDTH 16.8 % (11.5-14.5); WHITE BLOOD COUNT 6.8 X10'3 (4.5-11.0)
[2024-06-08 02:56] LABS: ABG HCO3 28.5 mmol/L (21.0-28.0); ABG OXYGEN SATURATION 95.9 % (94.0-98.0); ALLEN'S TEST Modified; FCOHb 0.3 % (0.5-1.5); FHHb 4.1 % (0.0-5.0); FMetHb 0.3 % (0.0-1.5); FO2Hb 95.3 % (94.0-98.0); MODE VENT - P/C 10; PATIENT TEMPERATURE 37.2; PEEP 10 cm H2O; RESPIRATORY RATE 18 b/min; TOTAL HEMOGLOBIN 9.7 G/dl (13.5-17.5)
[2024-06-08 03:03] LABS: ALANINE AMINOTRANSFERASE 26 U/L (12-78); ALBUMIN 1.2 G/DL (3.4-5.0); ALBUMIN/GLOBULIN RATIO 0.3 (1.1-1.5); ALKALINE PHOSPHATASE 93 IU/L (46-116); ANION GAP 12 (8-16); ASPARTATE AMINO TRANSFERASE 28 U/L (10-37); BILIRUBIN,TOTAL 0.3 MG/DL (0.1-1.0); BLOOD UREA NITROGEN 36 MG/DL (7-18); BUN/CREATININE RATIO 37.1 (10.0-20.0); CALCIUM 6.5 MG/DL (8.5-10.1); CHLORIDE 113 MMOL/L (99-107); CREATININE 0.97 MG/DL (0.60-1.10); GLUCOSE 204 MG/DL (70-104); PHOSPHORUS 2.6 MG/DL (2.3-4.5); POTASSIUM 3.4 MMOL/L (3.5-5.1); SODIUM 149 MMOL/L (135-145); TOTAL CARBON DIOXIDE 24.4 MMOL/L (24-32); TOTAL PROTEIN 4.8 G/DL (6.4-8.2); eCRCL 75 ML/MIN; eGFR 79 ML/MIN
[2024-06-08 03:06] LABS: MAGNESIUM 1.7 MG/DL (1.5-2.4)
[2024-06-08] MEDS: magnesium hydroxide 30ml (MOM) UD suspension OGT PRN (07:37)
[2024-06-08] MEDS: enoxaparin 40mg/0.4ml syringe SUBCUT SCH (10:00)
[2024-06-08] MEDS: dexamethasone 4mg/ml inj IV SCH (16:45)
[2024-06-09] VITALS (39 sets, daily range): BP systolic 92–161; BP diastolic 41–90; PULSE 66–112; RESP 16–33; O2SAT 90–96
[2024-06-09 01:47] LABS: BASOPHILS % (AUTO) 0.7 % (0-1); EOSINOPHILS # (AUTO) 0.1 X10'3 (0-0.9); EOSINOPHILS % (AUTO) 1.6 % (0-6); HEMATOCRIT 26.1 % (42.0-52.0); HEMOGLOBIN 8.6 g/dl (14.0-17.9); LYMPHOCYTES # (AUTO) 0.9 X10'3 (1.1-4.8); LYMPHOCYTES % (AUTO) 13.9 % (21-51); MEAN CORPUSCULAR HEMOGLOBIN 29.4 PG (27.0-31.0); MEAN CORPUSCULAR VOLUME 89.1 FL (78-98); MEAN PLATELET VOLUME 9.1 FL (7.4-10.4); MONOCYTES # (AUTO) 0.4 X10'3 (0-0.9); MONOCYTES % (AUTO) 5.8 % (2-12); NEUTROPHILS # (AUTO) 4.8 X10'3 (1.8-7.7); PLATELET COUNT 433 X10'3 (140-440); RED BLOOD COUNT 2.93 X10'6 (4.70-6.10); RED CELL DISTRIBUTION WIDTH 17.3 % (11.5-14.5); WHITE BLOOD COUNT 6.2 X10'3 (4.5-11.0)
[2024-06-09 02:01] LABS: ALANINE AMINOTRANSFERASE 27 U/L (12-78); ALBUMIN 1.3 G/DL (3.4-5.0); ALBUMIN/GLOBULIN RATIO 0.3 (1.1-1.5); ALKALINE PHOSPHATASE 125 IU/L (46-116); ANION GAP 5 (8-16); ASPARTATE AMINO TRANSFERASE 19 U/L (10-37); BILIRUBIN,TOTAL 0.3 MG/DL (0.1-1.0); BLOOD UREA NITROGEN 40 MG/DL (7-18); BUN/CREATININE RATIO 38.1 (10.0-20.0); CALCIUM 7.4 MG/DL (8.5-10.1); CHLORIDE 116 MMOL/L (99-107); CREATININE 1.05 MG/DL (0.60-1.10); GLUCOSE 187 MG/DL (70-104); MAGNESIUM 2.7 MG/DL (1.5-2.4); PHOSPHORUS 4.2 MG/DL (2.3-4.5); PREALBUMIN 16.5 MG/DL (19-36); SODIUM 147 MMOL/L (135-145); TOTAL CARBON DIOXIDE 25.7 MMOL/L (24-32); TOTAL PROTEIN 5.3 G/DL (6.4-8.2); TRIGLYCERIDES 281 MG/DL (20-135); eCRCL 69 ML/MIN; eGFR 72 ML/MIN
[2024-06-09 03:34] LABS: ABG BASE EXCESS 0.5 mmol/L (-2.0-3.0); ABG HCO3 25.4 mmol/L (21.0-28.0); ABG OXYGEN SATURATION 91.8 % (94.0-98.0); ABG PCO2 (T) 42.4 mmHg (35.0-48.0); ABG PH (T) 7.397 (7.350-7.450); ABG PO2 (T) 60.1 mmHg (83.0-108.0); ALLEN'S TEST Modified; FCOHb 0.4 % (0.5-1.5); FHHb 8.1 % (0.0-5.0); FMetHb 0.3 % (0.0-1.5); FO2Hb 91.2 % (94.0-98.0); MODE ac/prvc; PATIENT TEMPERATURE 37.3; PEEP 8 cm H2O; RESPIRATORY RATE 16 b/min; TIDAL VOLUME 500 mL; TOTAL HEMOGLOBIN 10.3 G/dl (13.5-17.5)
[2024-06-09] MEDS: KETAMINE HCL IV SCH (06:00)
[2024-06-09] MEDS: NS IV SCH (06:00)
[2024-06-09] MEDS: ketamine 10mg/ml 100 MG in NS 100ml IVPB IV SCH (08:11)
[2024-06-10] VITALS (40 sets, daily range): BP systolic 94–184; BP diastolic 41–81; PULSE 64–114; RESP 16–37; O2SAT 91–97
[2024-06-10 02:07] LABS: BASOPHILS # (AUTO) 0.1 X10'3 (0-0.2); EOSINOPHILS # (AUTO) 0.1 X10'3 (0-0.9); EOSINOPHILS % (AUTO) 1.7 % (0-6); HEMATOCRIT 24.7 % (42.0-52.0); HEMOGLOBIN 8.1 g/dl (14.0-17.9); LYMPHOCYTES # (AUTO) 0.6 X10'3 (1.1-4.8); LYMPHOCYTES % (AUTO) 8.6 % (21-51); MEAN CORPUSCULAR HEMOGLOBIN 29.4 PG (27.0-31.0); MEAN CORPUSCULAR HGB CONC 32.8 g/dL (33.0-36.5); MEAN CORPUSCULAR VOLUME 89.5 FL (78-98); MEAN PLATELET VOLUME 8.5 FL (7.4-10.4); MONOCYTES # (AUTO) 0.4 X10'3 (0-0.9); MONOCYTES % (AUTO) 5.8 % (2-12); NEUTROPHILS # (AUTO) 5.5 X10'3 (1.8-7.7); NEUTROPHILS % (AUTO) 82.9 % (42-75); PLATELET COUNT 490 X10'3 (140-440); RED BLOOD COUNT 2.76 X10'6 (4.70-6.10); RED CELL DISTRIBUTION WIDTH 17.3 % (11.5-14.5); WHITE BLOOD COUNT 6.7 X10'3 (4.5-11.0)
[2024-06-10 02:24] LABS: ALANINE AMINOTRANSFERASE 24 U/L (12-78); ALBUMIN 1.3 G/DL (3.4-5.0); ALBUMIN/GLOBULIN RATIO 0.4 (1.1-1.5); ALKALINE PHOSPHATASE 124 IU/L (46-116); ANION GAP 6 (8-16); ASPARTATE AMINO TRANSFERASE 13 U/L (10-37); BILIRUBIN,TOTAL 0.3 MG/DL (0.1-1.0); BLOOD UREA NITROGEN 41 MG/DL (7-18); BUN/CREATININE RATIO 39.8 (10.0-20.0); CALCIUM 7.5 MG/DL (8.5-10.1); CHLORIDE 114 MMOL/L (99-107); CREATININE 1.03 MG/DL (0.60-1.10); GLUCOSE 109 MG/DL (70-104); POTASSIUM 3.9 MMOL/L (3.5-5.1); SODIUM 146 MMOL/L (135-145); TOTAL CARBON DIOXIDE 26.1 MMOL/L (24-32); eCRCL 70 ML/MIN; eGFR 73 ML/MIN
[2024-06-10 03:12] LABS: ABG BASE EXCESS -0.2 mmol/L (-2.0-3.0); ABG HCO3 25.1 mmol/L (21.0-28.0); ABG OXYGEN SATURATION 97.6 % (94.0-98.0); ABG PCO2 (T) 43.9 mmHg (35.0-48.0); ABG PH (T) 7.375 (7.350-7.450); ABG PO2 (T) 106.7 mmHg (83.0-108.0); ALLEN'S TEST Modified; FHHb 2.4 % (0.0-5.0); FMetHb 0.3 % (0.0-1.5); FO2Hb 97.3 % (94.0-98.0); MODE VENT - PRVC; PEEP 8 cm H2O; RESPIRATORY RATE 16 b/min; TIDAL VOLUME 500 mL; TOTAL HEMOGLOBIN 9.8 G/dl (13.5-17.5)
[2024-06-10 16:14] LABS: ALBUMIN 1.3 G/DL (3.4-5.0); ANION GAP 7 (8-16); BLOOD UREA NITROGEN 37 MG/DL (7-18); BUN/CREATININE RATIO 35.6 (10.0-20.0); CALCIUM 7.3 MG/DL (8.5-10.1); CHLORIDE 113 MMOL/L (99-107); CREATININE 1.04 MG/DL (0.60-1.10); GLUCOSE 109 MG/DL (70-104); MAGNESIUM 1.9 MG/DL (1.5-2.4); PHOSPHORUS 4.2 MG/DL (2.3-4.5); SODIUM 147 MMOL/L (135-145); TOTAL CARBON DIOXIDE 26.7 MMOL/L (24-32); eCRCL 70 ML/MIN; eGFR 73 ML/MIN
[2024-06-10] MEDS: POTASSIUM CHLORIDE 20 MEQ/15 ML oral solution PO SCH (19:45)
[2024-06-10] MEDS: insulin glargine (Lantus) pen - multi-dose SQ SCH (19:53)
[2024-06-11] VITALS (46 sets, daily range): BP systolic 46–194; BP diastolic 40–102; PULSE 69–114; RESP 18–43; O2SAT 88–99
[2024-06-11 02:57] LABS: BASOPHILS # (AUTO) 0.1 X10'3 (0-0.2); EOSINOPHILS # (AUTO) 0.1 X10'3 (0-0.9); LYMPHOCYTES # (AUTO) 0.5 X10'3 (1.1-4.8); MONOCYTES # (AUTO) 0.4 X10'3 (0-0.9); NEUTROPHILS # (AUTO) 6.3 X10'3 (1.8-7.7)
[2024-06-11 02:59] LABS: BASOPHILS % (AUTO) 1.1 % (0-1); HEMATOCRIT 27.7 % (42.0-52.0); LYMPHOCYTES % (AUTO) 6.2 % (21-51); MEAN CORPUSCULAR HEMOGLOBIN 28.9 PG (27.0-31.0); MEAN CORPUSCULAR HGB CONC 32.6 g/dL (33.0-36.5); MEAN CORPUSCULAR VOLUME 88.5 FL (78-98); MONOCYTES % (AUTO) 5.4 % (2-12); NEUTROPHILS % (AUTO) 85.3 % (42-75); PLATELET COUNT 623 X10'3 (140-440); RED BLOOD COUNT 3.13 X10'6 (4.70-6.10); RED CELL DISTRIBUTION WIDTH 17.1 % (11.5-14.5); WHITE BLOOD COUNT 7.4 X10'3 (4.5-11.0)
[2024-06-11 03:14] LABS: ALANINE AMINOTRANSFERASE 36 U/L (12-78); ALBUMIN 1.4 G/DL (3.4-5.0); ALBUMIN/GLOBULIN RATIO 0.3 (1.1-1.5); ALKALINE PHOSPHATASE 191 IU/L (46-116); ANION GAP 11 (8-16); ASPARTATE AMINO TRANSFERASE 25 U/L (10-37); BILIRUBIN,TOTAL 0.3 MG/DL (0.1-1.0); BLOOD UREA NITROGEN 37 MG/DL (7-18); BUN/CREATININE RATIO 39.8 (10.0-20.0); CALCIUM 7.6 MG/DL (8.5-10.1); CHLORIDE 113 MMOL/L (99-107); CREATININE 0.93 MG/DL (0.60-1.10); GLUCOSE 203 MG/DL (70-104); MAGNESIUM 1.8 MG/DL (1.5-2.4); POTASSIUM 4.5 MMOL/L (3.5-5.1); SODIUM 149 MMOL/L (135-145); TOTAL CARBON DIOXIDE 24.7 MMOL/L (24-32); TOTAL PROTEIN 5.6 G/DL (6.4-8.2); TRIGLYCERIDES 326 MG/DL (20-135); eCRCL 78 ML/MIN; eGFR 83 ML/MIN
[2024-06-11 04:42] LABS: ABG BASE EXCESS -1.8 mmol/L (-2.0-3.0); ABG HCO3 23.2 mmol/L (21.0-28.0); ABG OXYGEN SATURATION 96.4 % (94.0-98.0); ABG PCO2 (T) 41.4 mmHg (35.0-48.0); ABG PH (T) 7.369 (7.350-7.450); ABG PO2 (T) 87.6 mmHg (83.0-108.0); ALLEN'S TEST Modified; FCOHb 0.8 % (0.5-1.5); FHHb 3.6 % (0.0-5.0); FMetHb 0.2 % (0.0-1.5); FO2Hb 95.4 % (94.0-98.0); MODE VENT - PRVC; PATIENT TEMPERATURE 37.5; PEEP 8 cm H2O; RESPIRATORY RATE 16 b/min; TIDAL VOLUME 500 mL; TOTAL HEMOGLOBIN 7.9 G/dl (13.5-17.5)
[2024-06-11] MEDS ORDERED: morphine 10mg/ml inj. IV PRN (08:10)
[2024-06-11] MEDS: COMMUNICATION ORDER 1 EA MISC MC ONE (11:34)
[2024-06-11] MEDS: morphine 4 MG/ML inj SYRINge IV PRN (12:08)
[2024-06-11] MEDS: LORazepam 2 mg/ml vial IV PRN (14:40)
== END 2024-06-11 21:59 | DRG 720 ==
LOC: ER 19:24 → ED HOLD 05-27 01:26 → EDBEDREQ 05-27 03:05 → CICU 2S 05-27 03:23
PROVIDERS: ADMIT Internal Medicine Pulmonary Disease; ATTEND Internal Medicine Pulmonary Disease
PROC: 5A1945Z Respiratory Ventilation, 24-96 Consecutive Hours (ICD-10-PCS; 2024-05-27)
PROC: 0BH17EZ Insertion of Endotracheal Airway into Trachea, Via Natural or Artificial Opening (ICD-10-PCS; 2024-05-27)
PROC: 5A1955Z Respiratory Ventilation, Greater than 96 Consecutive Hours (ICD-10-PCS; principal; 2024-06-01)
PROC: 0BH17EZ Insertion of Endotracheal Airway into Trachea, Via Natural or Artificial Opening (ICD-10-PCS; 2024-06-01)
PROC: 02HV33Z Insertion of Infusion Device into Superior Vena Cava, Percutaneous Approach (ICD-10-PCS; 2024-06-06)
PROC: B548ZZA Ultrasonography of Superior Vena Cava, Guidance (ICD-10-PCS; 2024-06-06)
DX: A41.9 Sepsis, unspecified organism (principal); J80 Acute respiratory distress syndrome; R65.21 Severe sepsis with septic shock; J69.0 Pneumonitis due to inhalation of food and vomit; I21.4 Non-ST elevation (NSTEMI) myocardial infarction; G93.41 Metabolic encephalopathy; I50.33 Acute on chronic diastolic (congestive) heart failure; E11.10 Type 2 diabetes mellitus with ketoacidosis without coma; U07.1 COVID-19; N17.9 Acute kidney failure, unspecified; E87.6 Hypokalemia; N18.9 Chronic kidney disease, unspecified; B95.2 Enterococcus as the cause of diseases classified elsewhere; N39.0 Urinary tract infection, site not specified; E87.0 Hyperosmolality and hypernatremia; D63.8 Anemia in other chronic diseases classified elsewhere; E87.1 Hypo-osmolality and hyponatremia; I25.10 Atherosclerotic heart disease of native coronary artery without angina pectoris; R56.9 Unspecified convulsions; Z79.4 Long term (current) use of insulin; Z79.82 Long term (current) use of aspirin; Z95.1 Presence of aortocoronary bypass graft
CPT/HCPCS: 31500; 36415; 36569; 36600; 70450; 70496; 70498; 71045; 74018; 76700; 76942; 80048; 80053; 80061; 80202; 80305; 80320; 81001; 82009; 82150; 82803; 82948; 83036; 83605; 83690; 83735; 83880; 84100; 84134; 84145; 84478; 84484; 85007; 85008; 85018; 85025; 85610; 85730; 86885; 86900; 86901; 87040; 87070; 87077; 87081; 87088; 87186; 87324; 87449; 87502; 87503; 87811; 93005; 93306; 93970; 94002; 94003; 94640; 94660; 94760; 96365; 96375; 99291; A4333; A4615; A4620; A4624; A4628; A5200; A6196; A6212; A6213; A6250; A6258; A6449; A7015; A9900; C1751; C1758; G0378; J0295; J0456; J0610; J0696; J1100; J1171; J1644; J1650; J1815; J1940; J1953; J1956; J2060; J2250; J2270; J2310; J2470; J2560; J2597; J2704; J3010; J3372; J3475; J3480; J3490; J7030; J7040; J7042; J7050; J7060; J7070; Q9967